=== PATIENT | male | born 1955 | race Hispanic/Latino ===

== ENCOUNTER 2017-10-28 16:01 | Observation (INO) | payer MEDICARE, OTHER ==
[~2017-10-28] VITALS: Ht 175.3 cm; Wt 72.6 kg
--- OUTSIDE RECORDS SUMMARY | 2017-10-28 16:04 | XMS REPORT | Clinical Summary ---
Author Author BARBARA [facility] Organization [facility] Address Unknown Phone Unavailable Care Team Providers Care Reinforcer Name Role Phone PCP Unavailable Allergies Active Allergy Reactions Severity Noted Date Comments Lisinopril Other (See Comments) High 09/05/2015 cough Metformin Other (See Comments) High 11/04/2013 Pt not sure of reaction Reishi Mushroom Other (See Comments) High 09/05/2015 Skin sensitivity Sulfonylureas Other (See Comments) High 11/04/2013 Pt not sure of reaction Current Medications Prescription Sig. Disp. Refills Start End Date Status Date atorvastatin (LIPITOR) 20 Take 1 tablet (20 mg 90 tablet 1 11/10/19 Active MG tablet total) by mouth nightly. 14 lancets (LANCETS,ULTRA Check BS twice daily. 100 each 1 01/25/20 Active THIN) MiscIndications: 16 Type 2 diabetes mellitus without complication (HCC) cloNIDine HCl (CATAPRES) TAke i tab po BID prn for 90 tablet 0 Active 0.1 MG tablet SBP > 160 or DBP > 100. 16 calcium acetate 667 mg Take by mouth 3 (three) Active (169 mg calcium)/5 mL times daily with meals. Soln blood sugar diagnostic 100 strips by 100 strip 1 06/11/20 Active StrpIndications: Type 2 Miscellaneous route every 16 diabetes mellitus without morning Pt uses complication (HCC) Accu-check test strips. amiodarone (PACERONE) 100 Further refills from 30 tablet 0 02/05/20 Active MG tabletIndications: cardiology Dr Street. 17 Paroxysmal atrial fibrillation (HCC), Cough traZODone (DESYREL) 50 MG Take 1 tablet (50 mg 30 tablet 1 03/01/20 Active tabletIndications: total) by mouth every 17 Primary insomnia night as needed for Sleep. losartan (COZAAR) 25 MG Take 1 tablet (25 mg 30 tablet 3 06/26/20 Active tabletIndications: total) by mouth daily 17 Essential hypertension 12.5 mg on TTHS . benzonatate (TESSALON) Take 1 capsule (100 mg 30 capsule 2 06/26/20 Active 100 MG total) by mouth 3 (three) 17 capsuleIndications: Cough times daily as needed for COUGH. levothyroxine (SYNTHROID, 12.5 mcg qd. 15 tablet 3 06/26/20 Active LEVOTHROID) 25 MCG 17 tabletIndications: Hypothyroidism, unspecified type azelastine-fluticasone 1 spray by Nasal route 2 23 g 0 09/08/20 Active (DYMISTA) 137-50 (two) times daily. 17 mcg/spray SpryIndications: Nasal congestion metoprolol (TOPROL-XL) 25 Take 12.5 mg by mouth Active MG 24 hr tablet daily. omeprazole (PRILOSEC) 40 Take 40 mg by mouth Active MG capsule daily. warfarin (COUMADIN) 3 MG Take 1 tablet (3 mg 7 tablet 0 09/13/20 Active tablet total) by mouth daily 17 Take 2mg on on Thursday and , and 4mg all other days. furosemide (LASIX) 40 MG Take 1 tablet (40 mg 60 tablet 2 09/30/19 Active tabletIndications: total) by mouth 2 (two) 18 Essential hypertension times daily. ipratropium-albuterol Take 3 mLs by Active (DUO-NEB) 0.5 mg-3 mg(2.5 nebulization every 4 mg base)/3 mL nebulizer (four) hours as needed solutionIndications: for Wheezing. Wheezing mometasone (ASMANEX Inhale 220 mcg by mouth Active TWISTHALER) 220 mcg (120 via inhaler as needed. doses) AePBIndications: Wheezing predniSONE (DELTASONE) 10 Take 40 mg daily for 3 30 tablet 0 10/16/19 Active MG tablet days, then 30 mg daily 18 for 3 days, then 20 mg daily for 3 days then 10 mg daily for 3 days then stop.. chlorpheniramine-hydrocod Take 5 mLs (8 mg total) 1 Bottle 0 10/16/19 Active one (TUSSIONEX ER) 12 hr by mouth 2 (two) times 18 ER suspension 8 mg-10 daily. Max Daily Amount: mg/5 mL 16 mg traZODone (DESYREL) 50 MG Take 1 tablet (50 mg 30 tablet 5 04/02/20 01/02/20 Discontin tabletIndications: total) by mouth every 15 17 ued Insomnia night as needed for Sleep. [facility] RX 1-60-300 TAKE ONE TABLET BY MOUTH 30 tablet 3 10/22/19 09/13/20 Discontin mg-mg-mcg Tab ONCE DAILY 16 17 ued metoprolol (LOPRESSOR) 25 Take 0.5 tablets (12.5 mg 90 tablet 1 02/05/20 Discontin MG tabletIndications: total) by mouth daily. 16 17 ued Essential hypertension furosemide (LASIX) 40 MG Take 1 tablet (40 mg 30 tablet 5 01/25/20 02/05/20 Discontin tabletIndications: total) by mouth daily. 16 17 ued Coronary artery disease involving [place] coronary artery of [place] heart without angina pectoris amiodarone (PACERONE) 100 Take 100 mg by mouth 02/05/20 Discontin MG tablet daily. 17 ued losartan (COZAAR) 25 MG Take 1 tablet (25 mg 90 tablet 3 06/11/20 Discontin tabletIndications: total) by mouth daily. 16 17 ued Essential hypertension, hypertension with unspecified goal omeprazole (PRILOSEC) 40 Take 1 capsule (40 mg 30 capsule 5 08/20/20 11/22/19 Discontin MG capsule total) by mouth daily. 16 17 ued warfarin (COUMADIN) 2 MG Take 2mg on on Thursday 180 tablet 10 09/13/20 Discontin tablet and , and 4mg all 17 17 ued other days. losartan (COZAAR) 25 MG Take 25 mg by mouth daily 06/11/20 06/26/20 Discontin tablet 12.5 mg on TTHS . 16 17 ued omeprazole (PRILOSEC) 40 Take 40 mg by mouth as 08/20/20 02/05/20 Discontin MG capsule needed. 16 17 ued traZODone (DESYREL) 50 MG TAKE 1 TABLET (50MG 30 tablet 0 01/03/20 02/28/20 Discontin tablet TOTAL) BY MOUTH EVERY 17 17 ued NIGHT NEEDED FOR SLEEP benzonatate (TESSALON) Take 100 mg by mouth 3 02/05/20 Discontin 100 MG capsule (three) times daily as 17 ued needed for Cough. furosemide (LASIX) 40 MG Take 1 tablet (40 mg 60 tablet 1 02/05/20 06/26/20 Discontin tabletIndications: total) by mouth 2 (two) 17 17 ued Coronary artery disease times daily. involving [place] coronary artery of [place] heart without angina pectoris metoprolol (LOPRESSOR) 25 Take 0.5 tablets (12.5 mg 90 tablet 1 09/11/20 Discontin MG tabletIndications: total) by mouth daily. 17 17 ued Essential hypertension omeprazole (PRILOSEC) 40 Take 1 capsule (40 mg 30 capsule 1 02/05/20 06/26/20 Discontin MG capsuleIndications: total) by mouth daily as 17 17 ued Gastroesophageal reflux needed (heartburn). disease without esophagitis benzonatate (TESSALON) Take 1 capsule (100 mg 30 capsule 0 02/05/20 02/28/20 Discontin 100 MG total) by mouth 3 (three) 17 17 ued capsuleIndications: times daily as needed for Essential hypertension Cough. levothyroxine Take 0.5 tablets (12.5 15 tablet 1 02/07/20 04/07/20 Discontin (LEVOTHROID) 25 MCG mcg total) by mouth Every 17 17 ued tabletIndications: morning on an empty Hypothyroidism, stomach for 30 days 12.5 unspecified type, mcg qd. Elevated TSH benzonatate (TESSALON) Take 1 capsule (100 mg 30 capsule 0 02/28/20 03/16/20 Discontin 100 MG total) by mouth 3 (three) 17 17 ued capsuleIndications: times daily as needed for Essential hypertension Cough. benzonatate (TESSALON) TAKE ONE CAPSULE BY MOUTH 30 capsule 0 04/07/20 Discontin 100 MG THREE TIMES DAILY 17 17 ued capsuleIndications: NEEDED FOR COUGH Essential hypertension benzonatate (TESSALON) Take 1 capsule (100 mg 30 capsule 0 04/07/20 06/26/20 Discontin 100 MG total) by mouth 3 (three) 17 17 ued capsuleIndications: times daily as needed for Essential hypertension COUGH. levothyroxine Take 0.5 tablets (12.5 15 tablet 1 04/07/20 05/07/20 (LEVOTHROID) 25 MCG mcg total) by mouth Every 17 17 tabletIndications: morning on an empty Hypothyroidism, stomach for 30 days 12.5 unspecified type, mcg qd. Elevated TSH omeprazole (PRILOSEC) 40 Take 1 capsule (40 mg 30 capsule 1 06/26/20 09/11/20 Discontin MG capsuleIndications: total) by mouth daily. 17 17 ued Gastroesophageal reflux disease without esophagitis furosemide (LASIX) 40 MG Take 1 tablet (40 mg 60 tablet 2 06/26/20 09/29/19 Discontin tabletIndications: total) by mouth 2 (two) 17 18 ued Essential hypertension times daily. doxycycline (VIBRA-TABS) Take 1 tablet (100 mg 14 tablet 0 07/09/20 09/11/20 Discontin 100 MG tablet total) by mouth 2 (two) 17 17 ued times daily. mupirocin (BACTROBAN) 2 % Apply topically 4 (four) 30 g 0 07/10/20 07/15/20 creamIndications: Open times daily for 5 days. 17 17 wound of left lower extremity, subsequent encounter oseltamivir (TAMIFLU) 30 Take 1 capsule (30 mg 1 capsule 0 09/14/20 09/15/20 MG capsule total) by mouth daily for 17 17 1 day. methylPREDNISolone follow package 21 tablet 0 09/13/20 09/20/20 (MEDROL DOSEPACK) 4 mg directions. 17 17 tablet codeine-guaifenesin Take 5 mLs by mouth every 40 mL 0 10/08/1910/16 Discontin (GUAIFENESIN AC) 10-100 night as needed for Cough 18 18 ued mg/5 mL for up to 7 days. Max liquidIndications: Daily Amount: 5 mLs Persistent cough Hospital, Clinic, or Ordered Dose Route Frequency Start End Date Status Other Facility Date Administered Medication albuterol (PROVENTIL) 2.5 MG nebu Once 09/10/20 Active nebulizer solution 2.5 17 mgIndications: Wheezing Active Problems Problem Noted Date Sepsis ([facility]) 10/12/2017 Influenza A 09/10/2017 Acquired hypothyroidism 06/26/2017 Overview: TSH persistently elevated, started on levo 12.5 mcg qd in 03/07. 06/26--ran out of levo a month ago, rx given today.lab order written for tsh and free t4, he will do at a lab [facility] close to his home in 6 weeks. Insomnia due to medical condition 02/08/2017 Overview: Associated with mild depression, trazodone helps. Chronic combined systolic and diastolic congestive heart failure ([facility]) 06/11 Overview: Last EF 40-44% 2014 Diastolic dysfunction as well Paroxysmal atrial fibrillation ([facility]) 12/24/2015 Overview: Dr Silva on coumadin managed by pcp ESRD (end stage renal disease) on dialysis ([facility]) 04/02/2015 Overview: [place], Fausto Jauregui [facility] Hypertension 11/25/2013 Coronary artery disease. I A B P. Delirium. s/p CABG x3 11/21/20142012 Overview: s/p PTCA by Dr Street PAD (peripheral artery disease) ([facility]) Anemia Overview: Secondary to CKD Bilateral carotid artery disease ([facility]) Overview: Dopplers ordered by Dr Silva Diabetes mellitus ([facility]) Overview: accucheks q 7-10 days, around 100-120. Last a1c 6.9. Was on insulin prn in the past L ast Assessment & Plan: Managed by Dr. Quintin Barrera. On Tradjenta monotherapy. Retinopathy Overview: Seeing Dr. Pizarro and being followed for retinopathy for the eye procedure. Lacunar stroke Overview: No deficits on exam except 2/2 CIDP CIDP (chronic inflammatory demyelinating polyneuropathy) Overview: Dr. Lozano, manifested as pain and weakness in the hands Can't walk long distances due to spine pain, uses a cane for balance and pain Proteinuria Overview: UPC ~3-4, UPIFE/SPEP, serologies negative 2013 Resolved Problems Problem Noted Date Resolved Date On warfarin therapy 10/08/2016 02/04/2017 Overview: A-fib, [facility], Home INR, Also on HD Encounters Date Type Specialty Care Team Description 10/28/2017 Telephone Internal Medicine Crsitian Ackerman MD REPORT INR and BS (REPORT INR and BS 10/28/2017) 10/26/2017 Telephone Internal Medicine Cristian Ackerman MD Results 10/23/2017 Telephone Internal Medicine Cristian Ackerman MD BS READAING 10/22/2017 Orders Only Internal Cristian Blue MD 10/22/2017 Telephone Internal Medicine Cristian Ackerman MD Anticoagulation 10/19/2017 Telephone Internal Medicine Cristian Ackerman MD INR /Rx ( INR result and Rx questions and Fall) 10/12/[address] [facility] Internal Medicine Aries Rod MD Wheezing - Encounter Chon Mooney, 10/16/2017 Gilda Quesada MD 10/12/2017 Office Visit Internal Medicine Cristian Ackerman MD Chronic anticoagulation (Primary Dx);Persistent cough;Essential hypertension;Wheezing;Typ e 2 diabetes mellitus without complication, without long-term current use of insulin (HCC);ESRD (end stage renal disease) on dialysis;Paroxysmal atrial fibrillation (HCC) 10/12/2017 Telephone Internal Medicine Cristian Ackerman MD Coagulation Disorder (INR out of Range 10/08/2017) 10/12/2017 Telephone Internal Medicine Cristian Ackerman MD Advice Only ; Appointment 10/08/2017 Telephone Internal Medicine Cristian Ackerman MD Medication (Change med , ) 10/08/2017 Telephone Internal Medicine Cristian Ackerman MD INR 10/08/2017 Orders Only Internal Medicine Cristian Ackerman MD Persistent cough (Primary Dx) 10/05/2017 Orders Only Internal Medicine Cristian Ackerman MD 09/30/2017 Telephone Internal Medicine Cristian Ackerman MD INR 09/29/2017 Refill Internal Medicine Cristian Ackerman MD Essential hypertension 09/28/2017 Clinical Internal Medicine Cristian Ackerman MD Support 09/25/2017 Orders Only Internal Medicine Karis Travis MD 09/25/2017 Refill Internal Medicine Cristian Ackerman MD Essential hypertension 09/23/2017 Orders Only Internal Medicine Karis Travis MD 09/23/2017 Telephone Internal Medicine Karis Travis MD INR 09/22/2017 Emergency Emergency Medicine Tyrell Myrick MD Closed head injury, initial encounter (Primary Dx);Fall, initial encounter;Weakness;Decrea sed oral intake;Anticoagulated on Coumadin;History of influenza 09/22/2017 Telephone Internal Medicine Cristian Ackerman MD Duplicate msg see 09/22/2017 09/22/2017 Telephone Internal Medicine Cristian Ackerman MD Fall; FOLLOW UP FROM FALL; INR REGIMEN 09/18/2017 Orders Only Internal Medicine Cristian Ackerman MD 09/18/2017 Telephone Internal Medicine Cristian Ackerman MD Results ( INR RESULTS ) 09/16/2017 Orders Only Internal Medicine Cristian Ackerman MD 09/15/2017 Telephone Internal Medicine Cristian Ackerman MD INR 09/10/2017 [facility] Internal Medicine [place] Influenza A (Primary - Encounter Ryann Guan MD Dx);Hypoxia;ESRD (end 09/13/2017 Katharine Morris) Richard, stage renal disease) ([facility]);Wheezing 09/10/2017 Office Visit Internal Medicine Cristian Ackerman MD Influenza A (Primary Dx);Wheezing;Chronic anticoagulation;Type 2 diabetes mellitus without complication, without long-term current use of insulin ([facility]);Essential hypertension;ESRD (end stage renal disease) on dialysis;Cough 09/10/2017 Orders Only General Internal Medicine 09/10/2017 Telephone Internal Medicine Cristian Ackerman MD appt 09/09/2017 Telephone Internal Medicine Cristian Ackerman MD Coagulation Disorder 09/02/2017 Orders Only Internal Medicine Cristian Ackerman MD 09/02/2017 Telephone Internal Medicine Cristian Ackerman MD Results ( INR Results) 08/26/2017 Orders Only Internal Medicine Cristian Ackerman MD 07/29/2017 Telephone Internal Medicine Cristian Ackerman MD PT/INR 07/21/2017 Telephone Internal Medicine Cristian Ackerman MD PT/INR 07/13/2017 Telephone Internal Medicine Cristian Ackerman MD Lab results 07/10/2017 Office Visit Internal Medicine Cristian Ackerman MD Open wound of left lower extremity, subsequent encounter (Primary Dx);Chronic anticoagulation 06/26/2017 Office Visit Internal Medicine Cristian Ackerman MD Anemia, unspecified type (Primary Dx);Gastroesophageal reflux disease without esophagitis;Coronary artery disease involving [place] coronary artery of [place] heart without angina pectoris;Essential hypertension;Type 2 diabetes mellitus without complication, without long-term current use of insulin (HCC);ESRD (end stage renal disease) on dialysis;Chronic combined systolic and diastolic congestive heart failure (HCC);Mixed hyperlipidemia 06/26/2017 Telephone Internal Medicine Cristian Ackerman MD Clarify directions of Rx 06/25/2017 Telephone Internal Medicine Cristian Ackerman MD Results ( Placed call Ms. Rosa Blackmon picked the phone states she has the power of Atty. I advised the pt should continue with the same dose medication and repeat lab in 2 weeks) 06/24/2017 Telephone Internal Medicine Cristian Ackerman MD Concered about patient 06/04/2017 Telephone Internal Cristian Blue MD 06/05/2017 Appt (Cancel 06/05/2017 ) 05/28/2017 Telephone Internal Medicine Cristian Ackerman MD INR 05/13/2017 Refill Internal Medicine Cristian Ackerman MD Essential hypertension 05/11/2017 Refill Internal Medicine Cristian Ackerman MD Essential hypertension 05/06/2017 Refill Internal Medicine Cristian Ackerman MD Essential hypertension 05/04/2017 Orders Only Internal Cristian Blue MD 04/07/2017 Refill Internal Medicine Cristian Ackerman MD Essential hypertension 03/31/2017 [place] Encounter MD 03/31/2017 Telephone Internal Medicine Cristian Ackerman MD Results 03/16/2017 Refill Internal Medicine Cristian Ackerman MD Essential hypertension 03/10/2017 Telephone Internal Medicine Cristian Ackerman MD Medication Problem 03/02/2017 Telephone Internal Medicine Cristian Ackerman MD Medication Reaction 03/02/2017 Refill Internal Cristian Blue MD 02/28/2017 Refill Internal Medicine Benitez Dewitt MD 02/27/2017 Orders Only Internal Medicine Cristian Ackerman MD Essential hypertension 02/27/2017 Refill Internal Medicine Cristian Ackerman MD Essential hypertension 02/27/2017 Refill Internal Medicine Benitez Dewitt MD Primary insomnia (Primary Dx) 02/09/2017 Telephone Internal Medicine Cristian Ackerman MD Results 02/05/2017 Telephone Internal Medicine Cristian Ackerman MD Results 02/04/2017 Hospital Cristian Ackerman MD Cough Encounter 02/04/2017 Office Visit Internal Medicine Cristian Ackerman MD Bilateral carotid artery disease (HCC) (Primary Dx);Coronary artery disease involving [place] coronary artery of [place] heart without angina pectoris;Paroxysmal atrial fibrillation (HCC);Type 2 diabetes mellitus without complication, without long-term current use of insulin (HCC);Chronic anticoagulation;Elevated TSH;Mixed hyperlipidemia;Cough;Esse ntial hypertension;Gastroesopha geal reflux disease without esophagitis 01/29/2017 Refill Internal Medicine Quintin Barrera MD 01/13/2017 Orders Only Internal Medicine Benitez Dewitt MD 01/03/2017 Telephone Internal Medicine Benitez Dewitt MD Appointment (Needs appt) 01/01/2017 Refill Internal Medicine Quintin Barrera MD 01/01/2017 Orders Only Internal Medicine Racheal Salmeron MD 12/10/2016 Orders Only Internal Medicine Racheal Salmeron MD 11/21/2016 Office Visit Cardiology Pamela Sy, ESRD (end stage renal MD disease) on dialysis (HCC) (Primary Dx) 11/19/2016 Telephone Internal Medicine Racheal Salmeron MD Coagulation Disorder 11/17/2016 Telephone Internal Medicine Racheal Salmeron MD Medication Refill 11/13/2016 Orders Only Internal Medicine Racheal Salmeron MD after 10/27/2016 Immunizations Name Dates Previously Given Next Due Influenza High Dose 06/11/2015 Preservative Free [id number] Influenza, High Dose 08/25/2014 Seasonal Pneumococcal 08/25/2014 Polysaccharide (Pneumovax) Tdap 06/26/2017 Family History Medical History Relation Name Comments Diabetes Father Heart disease Father Heart failure Father age 46 of heart disease High blood pressure Father Hyperlipidemia Father Diabetes Mother Heart disease Mother High blood pressure Mother Hyperlipidemia Mother Stroke Mother Relation Name Status Comments Father Mother Social History Tobacco Use Types Packs/Day Years Used Date Never Smoker Cigars Quit: 05/30/1995 Smokeless Tobacco: Never Used Alcohol Use Drinks/Week oz/Week Comments Yes Sex Assigned at Date Recorded Not on file Last Filed Vital Signs Vital Sign Reading Time Taken Blood Pressure 141/65 10/16/2017 3:00 PM [employer]IST[employer] Pulse 89 10/16/2017 3:19 PM [employer]EARCH [employer]UDY ASSISTANT Temperature 35.7 C (96.3 F) 10/16/2017 3:00 PM [employer]EARCH STUDY ASSISTANT Respiratory Rate 18 10/16/2017 3:19 PM [employer]EARCH STUDY ASSISTANT Oxygen Saturation 96% 10/16/2017 3:19 PM RESEARCH STUDY ASSISTANT Inhaled Oxygen - - Concentration Weight 72.3 kg (159 lb 6.4 oz) 10/16/2017 5:00 AM RESEARCH STUDY ASSISTANT Height 175.3 cm (5' 9") 10/12/2017 1:05 PM [employer]EARCH [employer]UDY ASSISTANT Body Mass Index 23.54 10/16/2017 5:00 AM RESEARCH STUDY ASSISTANT Plan of Treatment Health Maintenance Due Date Last Done Comments INFLUENZA VACCINE 06/21/2017 06/11/2015 Procedures Procedure Name Priority Date/Time Associated Diagnosis Comments CRITICAL CARE Routine 09/13/2017 Results for this 9:44 AM RESEARCH STUDY ASSISTANT procedure are in the results section. after 10/27/2016 Results * RHYTHM STRIP - SCAN (10/27/2017 9:12 AM) Only the most recent of 5 results within the time period is included. * Prothrombin time/INR (10/22/2017) Only the most recent of 24 results within the time period is included. Specimen Performing Laboratory Blood OTHER (EXTERNAL) * POC-Glucose meter (10/16/2017 11:04 AM) Only the most recent of 20 results within the time period is included. Component Value Ref Range POC-Glucose Meter 328 (H)Comment: TESTED AT [address] 70 - 110 mg /dL [facility] [id number] Specimen Performing Laboratory Blood [facility] [address] [address] * CBC with platelet count + automated diff (10/16/2017 6:46 AM) Only the most recent of 10 results within the time period is included. Component Value Ref Range WBC 14.8 (H) 3.5 - 10.5 K/ L RBC 3.43 (L) 4.63 - 6.08 M/ L Hemoglobin 10.2 (L) 13.7 - 17.5 GM/DL Hematocrit 32.8 (L) 40.1 - 51.0 % MCV 95.6 (H) 79.0 - 92.2 fL MCH 29.7 25.7 - 32.2 pg MCHC 31.1 (L) 32.3 - 36.5 GM/DL RDW 15.7 (H) 11.6 - 14.4 % Platelets 260 150 - 450 K/CU MM MPV 9.6 9.4 - 12.4 fL nRBC 0 0 - 0 /100 WBC % Neutros 93 % % Lymphs 4 % % Monos 3 % % Eos 0 % % Baso 0 % # Neutros 13.73 (H) 1.78 - 5.38 K/ L # Lymphs 0.54 (L) 1.32 - 3.57 K/ L # Monos 0.43 0.30 - 0.82 K/ L # Eos 0.00 (L) 0.04 - 0.54 K/ L # Baso 0.00 (L) 0.01 - 0.08 K/ L Immature 1 0 - 1 % Granulocytes-Relative Specimen [place] [address] * CBC with platelet count + automated diff (10/16/2017 6:46 AM) Only the most recent of 11 results within the time period is included. Specimen Performing Laboratory Blood Narrative The following orders were created for panel order CBC with platelet count + automated diff. Procedure Abnormality Status --------- - ------ CBC with platelet count ...[[id number]]AbnormalFinal result Please view results for these tests on the individual orders. * Magnesium (10/16/2017 6:46 AM) Only the most recent of 8 results within the time period is included. Component Value Ref Range Magnesium 1.9 1.6 - 2.6 mg/dL Specimen Performing Laboratory Blood [address] [address] * Basic Metabolic Panel (10/16/2017 6:46 AM) Only the most recent of 10 results within the time period is included. Component Value Ref Range Sodium 135 (L) 136 - 145 meq/L Potassium 4.0 3.5 - 5.1 meq/L Chloride 97 (L) 98 - 107 meq/L CO2 29 22 - 29 meq/L BUN 33 (H) 7 - 21 mg/dL Creatinine 4.29 (H) 0.57 - 1.25 mg/dL Glucose 233 (H) 70 - 105 mg/dL Calcium 8.4 8.4 - 10.2 mg/dL EGFR 14Comment: ESTIMATED GFR IS NOT ACCURATE mL/min/1.73 sq m CREATININE CLEARANCE IN PREDICTING GLOMERULAR FILTRATION RATE. ESTIMATED GFR IS NOT APPLICABLE FOR DIALYSIS PATIENTS. Specimen Performing Laboratory Blood [facility] [address] [address] * CT chest without IV contrast (10/15/2017 5:42 PM) Specimen Performing Laboratory [facility] Narrative FINAL REPORT CT scan of the chest. MEDICAL HISTORY: Persistent cough. COMPARISON STUDY: CT scan dated February 01, 2016. Chest x-ray dated October 12, 2017 TECHNIQUE: Contiguous helical slices were acquired through the thorax without the administration of contrast. This exam was performed according to our department dose optimization program which includes automated exposure control, adjustment of the mA and/or kV according to the patient's size and/or use of iterative reconstruction technique. FINDINGS: The mediastinum demonstrates epicardial pacer wires. Atherosclerosis is seen. There are no suspicious masses or adenopathy. A left brachiocephalic vein stent is present. There is a mild to moderate right-sided pleural effusion and trace left-sided pleural fluid. The visualized portions of the upper abdomen are unremarkable. The tracheobronchial tree is clear with no endobronchial lesions. The pulmonary parenchyma demonstrates a 9 mm nodule in the right lung apex on image six, new from previous. There are two semisolid nodules in the right upper lobe on image 14 measuring 6 cm and 3 mm. Multiple other scattered semisolid nodules are seen which are new. Areas of atelectasis or consolidation are seen. There is some patchy airspace opacity and groundglass opacity in both lung bases. Within the right lung base adjacent to the effusion is a 4.7 x 2.7 cm opacity which is similar to previous and may represent rounded atelectasis. Similarly, chronic opacity is seen in the left lung base. Scattered reticulonodular markings are noted. There is a 1.1 cm nodule in the right lower lobe on image 29, not clearly present on the prior study. Bone windows demonstrate poststernotomy changes and degenerative changes. IMPRESSION: 1. Mild to moderate right-sided and trace left-sided pleural effusion with likely adjacent rounded atelectasis. The size of the effusions is smaller than on previous. 2. Increase in groundglass, patchy airspace and reticulonodular markings as compared to previous. Multiple new nodules are also seen. This could either be followed up with short-term three-month CT scan or CT/PET scan to exclude suspicious nodules. 3. Potential etiologies include volume overload or atypical infection. Signed: Camilo Laguerre MD Report Verified Date/Time:10/15/2017 18:53:51 Reading Location: [address] Consult Reading Room Procedure Note Interface, External Ris In - 10/15/2017 6:55 PM RESEARCH STUDY ASSISTANT FINAL REPORT CT scan of the chest. MEDICAL HISTORY: Persistent cough. COMPARISON STUDY: CT scan dated February 01, 2016. Chest x-ray dated October 12, 2017 TECHNIQUE: Contiguous helical slices were acquired through the thorax without the administration of contrast. This exam was performed according to our department dose optimization program which includes automated exposure control, adjustment of the mA and/or kV according to the patient's size and/or use of iterative reconstruction technique. FINDINGS: The mediastinum demonstrates epicardial pacer wires. Atherosclerosis is seen. There are no suspicious masses or adenopathy. A left brachiocephalic vein stent is present. There is a mild to moderate right-sided pleural effusion and trace left-sided pleural fluid. The visualized portions of the upper abdomen are unremarkable. The tracheobronchial tree is clear with no endobronchial lesions. The pulmonary parenchyma demonstrates a 9 mm nodule in the right lung apex on image six, new from previous. There are two semisolid nodules in the right upper lobe on image 14 measuring 6 cm and 3 mm. Multiple other scattered semisolid nodules are seen which are new. Areas of atelectasis or consolidation are seen. There is some patchy airspace opacity and groundglass opacity in both lung bases. Within the right lung base adjacent to the effusion is a 4.7 x 2.7 cm opacity which is similar to previous and may represent rounded atelectasis. Similarly, chronic opacity is seen in the left lung base. Scattered reticulonodular markings are noted. There is a 1.1 cm nodule in the right lower lobe on image 29, not clearly present on the prior study. Bone windows demonstrate poststernotomy changes and degenerative changes. IMPRESSION: 1. Mild to moderate right-sided and trace left-sided pleural effusion with likely adjacent rounded atelectasis. The size of the effusions is smaller than on previous. 2. Increase in groundglass, patchy airspace and reticulonodular markings as compared to previous. Multiple new nodules are also seen. This could either be followed up with short-term three-month CT scan or CT/PET scan to exclude suspicious nodules. 3. Potential etiologies include volume overload or atypical infection. Signed: Camilo Laguerre MD Report Verified Date/Time: 10/15/2017 18:53:51 Reading Location: [address] Consult Reading Room * Hemodialysis (10/15/2017 2:13 PM) Narrative Светлана Ruby RN 10/15/20172:13 PM Hemodialysis tolerated well. Vital signs stable. HD duration 4 hours UF 3.6 L Lab Results Component Value Date WBC 16.9 (H) 10/15/2017 HGB 9.5 (L) 10/15/2017 HCT 30.0 (L) 10/15/2017 MCV 95.5 (H) 10/15/2017 PLT 254 10/15/2017 Lab Results Component Value Date GLUCOSE 187 (H) 10/15/2017 CALCIUM 7.9 (L) 10/15/2017 NA 132 (L) 10/15/2017 K 4.4 10/15/2017 CO2 26 10/15/2017 CL 96 (L) 10/15/2017 BUN 30 (H) 10/15/2017 CREATININE 5.30 (H) 10/15/2017 No components found for: HEPSAG Vitals: 10/15/17 1315 BP: 93/56 Pulse: 70 Resp: 24 Temp: 96.5 F (35.8 C) SpO2: * Hepatitis B surface antigen (10/13/2017 9:06 PM) Only the most recent of 2 results within the time period is included. Component Value Ref Range hepatitis B Surface Ag Nonreactive Nonreactive Specimen Performing Laboratory Blood [address] [address] * Potassium (10/13/2017 4:44 PM) Component Value Ref Range Potassium 3.3 (L) 3.5 - 5.1 meq/L Specimen Performing Laboratory Blood - Arm, [place] [address] * Manual Differential (10/13/2017 5:43 AM) Component Value Ref Range % Neutros (manual) 96 % % Lymphs (manual) 2 % % Monos (manual) 2 % % Eos (manual) 0 % % Baso (manual) 0 % # Neutros (manual) 8.54 (H) 1.80 - 8.00 K/ L # Lymphs (manual) 0.18 (L) 1.48 - 4.50 K/ L # Monos (manual) 0.18 0.00 - 1.30 K/ L # Eos (manual) 0.00 0.00 - 0.50 K/ L # Baso (manual) 0.00 0.00 - 0.20 K/ L Total Counted 100 WBC Morphology Normal Platelet Morphology Normal RBC Morphology Normal Specimen Performing Laboratory Blood - Arm, [place] [address] * XR chest 1 view portable / bedside (10/12/2017 9:42 PM) Specimen Performing Laboratory GE RIS Narrative FINAL REPORT EXAMINATION:AP PORTABLE CHEST RADIOGRAPH CLINICAL INDICATION: Pneumonia IMPRESSION: Compared with 09/10/2017. A midline sternotomy is again noted. The enlarged heart, basilar lung opacities and bilateral pleural effusions are grossly stable. A vascular stent is again noted along the expected course of the left innominate vein. No evidence of an acute osseous abnormality or pneumothorax. In summary, no significant interval change. Signed: Jaky Thompson MD Report Verified Date/Time:10/12/2017 22:36:28 Reading Location: [address] Reading Room Procedure Note Interface, External Ris In - 10/12/2017 10:38 PM RESEARCH STUDY ASSISTANT FINAL REPORT EXAMINATION: AP PORTABLE CHEST RADIOGRAPH CLINICAL INDICATION: Pneumonia IMPRESSION: Compared with 09/10/2017. A midline sternotomy is again noted. The enlarged heart, basilar lung opacities and bilateral pleural effusions are grossly stable. A vascular stent is again noted along the expected course of the left innominate vein. No evidence of an acute osseous abnormality or pneumothorax. In summary, no significant interval change. Signed: Jaky Thompson MD Report Verified Date/Time: 10/12/2017 22:36:28 Reading Location: [address] Reading Room * Respiratory Panel [facility] (10/12/2017 9:24 PM) Component Value Ref Range Human Metapneumovirus Not detected Not detected, Inconclusive Rhinovirus Not detected Not detected, Inconclusive Influenza A Not detected Not detected, Inconclusive Influenza A subtype H1 Not detected Not detected, Inconclusive Influenza A Subtype H3 Not detected Not detected, Inconclusive Influenza A Subtype Not detected Not detected, H1-2009 Inconclusive Influenza B Not detected Not detected, Inconclusive Respiratory Syncytial Not detected Not detected, Virus Inconclusive Parainfluenza Virus 1 Not detected Not detected, Inconclusive Parainfluenza Virus 2 Not detected Not detected, Inconclusive Parainfluenza virus 3 Not detected Not detected, Inconclusive Parainfluenza Virus 4 Not detected Not detected, Inconclusive Adenovirus Not detected Not detected, Inconclusive Coronavirus 229E Not detected Not detected, Inconclusive Coronavirus HKU1 Not detected Not detected, Inconclusive Coronavirus NL63 Not detected Not detected, Inconclusive Coronavirus OC43 Not detected Not detected, Inconclusive Bordetella Pertussis Not detected Not detected, Inconclusive Chlamydophila Pneumoniae Not detected Not detected, Inconclusive Mycoplasma Pneumoniae Not detected Not detected, Inconclusive Specimen Performing Laboratory Nasopharyngeal - [facility] Nasopharyngeal Swab [address] [place] [address] * Lactic acid, venous, whole blood (10/12/2017 9:24 PM) Component Value Ref Range Lactate, Venous 1.0 0.5 - 2.2 mmol/L Specimen Performing Laboratory Blood - Arm, Right [address] [address] Narrative Effective 01/23/2016: Units/Reference Range Change New: 0.5-2.2 mmol/LPrevious: 5-20 mg/dL * B-type Natriuretic Factor (BNP) (10/12/2017 9:24 PM) Only the most recent of 2 results within the time period is included. Component Value Ref Range BNP 1342 (H) 0 - 100 pg/mL Specimen Performing Laboratory Blood - Arm, Right [facility] [address] [place] [address] * POCT Protime-INR Fingerstick (10/12/2017 3:47 PM) Only the most recent of 2 results within the time period is included. Component Value Ref Range Protime 21.0 (A)Comment: PERFORMED BY MEKA AND ENTERED BY 10.0 - 13.8 seconds GROVER INR 1.7 (A) 0.9 - 1.1 Specimen Performing Laboratory Blood * CT brain without IV contrast (09/22/2017 3:14 PM) Specimen Performing Laboratory GE RIS Narrative FINAL REPORT CT Head without contrast CLINICAL HISTORY: FALL Fall TECHNIQUE: Contiguous axial images through the head without contrast. This exam was performed according to the departmental dose optimization program which includes automated exposure control, adjustment of the mA and/or kV according to the patient size, and/or use of an iterative reconstruction technique. COMPARISON: 01/25/2016 FINDINGS: There is no evidence of skull fracture or intracranial hemorrhage. 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 There is periventricular and subcortical white matter hypodensity which is nonspecific but compatible with chronic microvascular ischemic change. There are atherosclerotic calcifications of the intracranial circulation. There is generalized parenchymal volume loss without hydrocephalus, midline shift, or apparent mass effect. The paranasal sinuses are well-aerated. IMPRESSION: No evidence of skull fracture or intracranial hemorrhage. Signed: Mora Marsh MD Report Verified Date/Time:09/22/2017 15:14:56 Reading Location: [facility] Radiology Reading Room Procedure Note Interface, External Ris In - 09/22/2017 3:17 PM RESEARCH STUDY ASSISTANT FINAL REPORT CT Head without contrast CLINICAL HISTORY: FALL Fall TECHNIQUE: Contiguous axial images through the head without contrast. This exam was performed according to the departmental dose optimization program which includes automated exposure control, adjustment of the mA and/or kV according to the patient size, and/or use of an iterative reconstruction technique. COMPARISON: 01/25/2016 FINDINGS: There is no evidence of skull fracture or intracranial hemorrhage. 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 There is periventricular and subcortical white matter hypodensity which is nonspecific but compatible with chronic microvascular ischemic change. There are atherosclerotic calcifications of the intracranial circulation. There is generalized parenchymal volume loss without hydrocephalus, midline shift, or apparent mass effect. The paranasal sinuses are well-aerated. IMPRESSION: No evidence of skull fracture or intracranial hemorrhage. Signed: Mora Marsh MD Report Verified Date/Time: 09/22/2017 15:14:56 Reading Location: [facility] Radiology Reading Room * PT/aPTT (09/22/2017 2:54 PM) Only the most recent of 2 results within the time period is included. Component Value Ref Range Protime 23.0 (H) 11.7 - 14.7 seconds INR 2.0 <=5.9 PTT 33.8 22.5 - 36.0 seconds Specimen Performing Laboratory Blood - Arm, [place] [address] Narrative RECOMMENDED COUMADIN/WARFARIN INR THERAPY RANGES STANDARD DOSE: 2.0 - 3.0 Includes: PROPHYLAXIS for venous thrombosis, systemic embolization; TREATMENT for venous thrombosis and/or pulmonary embolus. HIGH RISK: Target INR is 2.5-3.5 for patients with mechanical heart valves. * CHG PROTHROMBIN TIME (09/16/2017) Only the most recent of 4 results within the time period is included. * ED ECG Interpretation (09/13/2017 9:44 AM) Narrative Rehan Garcia MD 09/13/20179:44 AM ECG/EKG Interpretation Date/Time: 09/10/2017 3:28 PM Performed by: REHAN GARCIA Authorized by: REHAN GARCIA The ECG was interpreted by ED physician. The ECG is interpreted as sinus rhythm. Rate is normal rate. Heart rate is 76 BPM. Conduction: conduction normal. ST segments normal. T waves normal. [place] is normal. Q-waves are present in lead(s) III and aVF. Clinical Impression: abnormal ECGECG reviewed and does not meet STEMI criteria. Patient tolerance: Patient tolerated the procedure well with no immediate complications * Critical Care (09/13/2017 9:44 AM) Narrative Rehan Garcia MD 09/13/20179:44 AM Critical Care Performed by: REHAN GARCIA Authorized by: REHAN GARCIA Total critical care time: 60 minutes Critical care time was exclusive of separately billable procedures and treating other patients and teaching time. Critical care was necessary to treat or prevent imminent or life-threatening deterioration of the following conditions: sepsis. Critical care was time spent personally by me on the following activities: blood draw for specimens, development of treatment plan with patient or surrogate, discussions with consultants, interpretation of cardiac output measurements, evaluation of patient's response to treatment, examination of patient, obtaining history from patient or surrogate, ordering and performing treatments and interventions, ordering and review of laboratory studies, ordering and review of radiographic studies, pulse oximetry, re-evaluation of patient's condition and review of old charts. * ECHOCARDIOGRAM REPORT - SCAN (09/11/2017 5:13 PM) * 2D Echo W/Doppler(CW/PW/Color) (09/11/2017 2:09 PM) Component Value Ref Range Ejection Fraction Specimen Performing Laboratory [facility] ECHO HEARTLAB [facility] Narrative Transthoracic Echocardiography Report (TTE) Demographics Patient Name Debo BENITEZ of Study 09/11/2017 CECE [id number] Male Visit Number [id number] Unknown [id number] Room Number 918 Number Date of Birth4Referring Physician Yenifer Webster Age61 year(s)Compressor Station Operator Danielle Abrams [facility] Interpreting Gabriel Burrell MD Physician Fellow LUI Mora Procedure Type of Study TTE procedure:2DECHO W DOPPLER(CW/PW/COLOR) (STAT) Indications:Shortness of breath. Clinical History HGB 10.1 HCT 32.1 % CAD, DM, ESRD, HTN, Stroke, PAD, PAF, CHF, Influenza A s/p PCI/stent x 1 (05/31/2013) s/p CABG x 3 (11/21/2014) Contrast Medium: Definity. Amount - 2 ml Height: 69 inches Weight: 81.65 kg (180 lbs) BSA: 1.98 m^2 BMI: 26.58 kg/m^2 HR: 61 bpm BP: 148/65 mmHg Summary 1. Normal LV size and function. LVEF is 55-60%. 2. Diastology: Inconsistent 3. Normal RV size and function 4. Mild MAC 5. Mild TR. Estimated PASP is 25 + clinically estimated RAP. Previous Study In comparison with the prior exam 11/27/14 the following changes are noted: LVEF is improved. PA pressures are increased. Signature Findings Technical Quality: Technically adequate exam. Rhythm/BPRegular sinus rhythm during the exam. Left Ventricle LV endocardium is adequately visualized with IV ultrasound enhancing agent. The left ventricle is chamber size (by vol index) is normal (male - LVED vol - 34- 74ml/m2). No evidence of LV hypertrophy. All of the LV segments contract normally . LVEF by Mcleod's method of disk assessment is normal (55-60%) . Septal motion is abnormal, likely related to prior cardiac surgery . Diastology: Inconsistent. Left AtriumLA size is moderately enlarged (42-48 ml/m2 ) . Right VentricleThe right ventricular chamber size and systolic function are within normal limits. Right Atrium RA size is normal. Aortic Valve Mild AV thickening and calcification. Mitral Valve Mild MAC noted. Tricuspid ValveTV structure is normal. Mild tricuspid regurgitation. Estimated peak systolic pressure is at least 40-45 mmHg. Pulmonic Valve Normal PV structure and function. AortaAortic root size (SInus of Valsalva diameter) is normal . PericardiumNo pericardial effusion is visualized. IVC/SVC/PA/PV/PleuralThe estimated RA pressure by IVC dynamics 11-15mmHg . Chambers/Structures Left Atrium LA Dimension: 4.26 cmLA Area: 25.42 cm^2 LA Volume: 86.36 ml LA Vol. Index: 44 ml/m^2 Left Ventricle LVIDd: 4.96 cm LVIDs: 3.08 cm LV Septum Diastolic: 0.93 cm LV PW Diastolic: 1.16 cmLV FS: 37.9 % LVEDV Mcleod's:106.38 ml LVESV Mcleod's:45.55 mlLVEDVI: 54 ml/m ^2 LVEF Mcleod's: 57.2 %LVESVI: 23 ml /m^2 LVOT Diameter: 2.11 cm Right Ventricle TAPSE: 1.24 cm Doppler/Quantitative Measurements Mitral Valve MV Peak E-Wave: 1.43 m/s MV Peak A-Wave: 0.73 m /s E/A Ratio: 1.96 Peak Gradient: 8.19 mmHg MV Paulino. Peak: Tissue Doppler E' Septal Velocity: 0.07 m/s E/E': 19.42 Aortic Valve Peak Velocity: 1.15 m/sMean Velocity: 0.8 m /s Peak Gradient: 5.26 mmHg Mean Gradient: 2.88 mmHg AV Area (continuity): 2.92 cm^2 AV VTI: 26.65 cm AV DVI: 0.84 LVOT Peak Velocity: 0.99 m/s Peak Gradient: 3.92 mmHg Mean Velocity: 0.61 m/s Mean Gradient: 1.8 mmHg LVOT Diameter: 2.11 cmLVOT VTI: 22.26 cm LVOT Area: 3.5 cm^2 LVOT SV:77.8 ml LVOT CO: 4.75 l/min LVOT CI: 2.4 l/min/m^2 Tricuspid Valve TR Velocity: 2.6 m/s TR Gradient: 26.94 mmHg Procedure Note Interface, External Ris In - 09/11/2017 4:26 PM RESEARCH STUDY ASSISTANT Transthoracic Echocardiography Report (TTE) Demographics Patient Name GREGORIO BENITEZ Date of Study 09/11/2017 CECE Gender Male Visit Number [id number] Race Unknown Room Number 918 Number Date of 1955 Referring Physician Yenifer Webster Age 61 year(s) Compressor Station Operator Danielle Abrams RDCS Interpreting Gabriel Burrell MD Physician Fellow LUI Mora Procedure Type of Study TTE procedure:2DECHO W DOPPLER(CW/PW/COLOR) (STAT) Indications:Shortness of breath. Clinical History HGB 10.1 HCT 32.1 % CAD, DM, ESRD, HTN, Stroke, PAD, PAF, CHF, Influenza A s/p PCI/stent x 1 (05/31/2013) s/p CABG x 3 (11/21/2014) Contrast Medium: Definity. Amount - 2 ml Height: 69 inches Weight: 81.65 kg (180 lbs) BSA: 1.98 m^2 BMI: 26.58 kg/m^2 HR: 61 bpm BP: 148/65 mmHg Summary 1. Normal LV size and function. LVEF is 55-60%. 2. Diastology: Inconsistent 3. Normal RV size and function 4. Mild MAC 5. Mild TR. Estimated PASP is 25 + clinically estimated RAP. Previous Study In comparison with the prior exam 11/27/14 the following changes are noted: LVEF is improved. PA pressures are increased. Signature Findings Technical Quality: Technically adequate exam. Rhythm/BP Regular sinus rhythm during the exam. Left Ventricle LV endocardium is adequately visualized with IV ultrasound enhancing agent. The left ventricle is chamber size (by vol index) is normal (male - LVED vol - 34-74ml/m2). No evidence of LV hypertrophy. All of the LV segments contract normally . LVEF by Mcleod's method of disk assessment is normal (55-60%) . Septal motion is abnormal, likely related to prior cardiac surgery . Diastology: Inconsistent. Left Atrium LA size is moderately enlarged (42-48 ml/m2) . Right Ventricle The right ventricular chamber size and systolic function are within normal limits. Right Atrium RA size is normal. Aortic Valve Mild AV thickening and calcification. Mitral Valve Mild MAC noted. Tricuspid Valve TV structure is normal. Mild tricuspid regurgitation. Estimated peak systolic pressure is at least 40-45 mmHg. Pulmonic Valve Normal PV structure and function. Aorta Aortic root size (SInus of Valsalva diameter) is normal . Pericardium No pericardial effusion is visualized. IVC/SVC/PA/PV/Pleural The estimated RA pressure by IVC dynamics 11-15mmHg . Chambers/Structures Left Atrium LA Dimension: 4.26 cm LA Area: 25.42 cm^2 LA Volume: 86.36 ml LA Vol. Index: 44 ml/m^2 Left Ventricle LVIDd: 4.96 cm LVIDs: 3.08 cm LV Septum Diastolic: 0.93 cm LV PW Diastolic: 1.16 cm LV FS: 37.9 % LVEDV Mcleod's:106.38 ml LVESV Mcleod's:45.55 ml LVEDVI: 54 ml/m^2 LVEF Mcleod's: 57.2 % LVESVI: 23 ml/m^2 LVOT Diameter: 2.11 cm Right Ventricle TAPSE: 1.24 cm Doppler/Quantitative Measurements Mitral Valve MV Peak E-Wave: 1.43 m/s MV Peak A-Wave: 0.73 m/s E/A Ratio: 1.96 Peak Gradient: 8.19 mmHg MV Paulino. Peak: Tissue Doppler E' Septal Velocity: 0.07 m/s E/E': 19.42 Aortic Valve Peak Velocity: 1.15 m/s Mean Velocity: 0.8 m/s Peak Gradient: 5.26 mmHg Mean Gradient: 2.88 mmHg AV Area (continuity): 2.92 cm^2 AV VTI: 26.65 cm AV DVI: 0.84 LVOT Peak Velocity: 0.99 m/s Peak Gradient: 3.92 mmHg Mean Velocity: 0.61 m/s Mean Gradient: 1.8 mmHg LVOT Diameter: 2.11 cm LVOT VTI: 22.26 cm LVOT Area: 3.5 cm^2 LVOT SV:77.8 ml LVOT CO: 4.75 l/min LVOT CI: 2.4 l/min/m^2 Tricuspid Valve TR Velocity: 2.6 m/s TR Gradient: 26.94 mmHg * POC-Lactic Acid, Venous (09/10/2017 9:52 PM) Only the most recent of 2 results within the time period is included. Component Value Ref Range POC-Lactic Acid, Venous 1.4Comment: TESTED AT [address] 0.9 - 1.7 mmol/[place] [id number] Specimen [place] [address] * Urinalysis w/ Microscopic (09/10/2017 5:37 PM) Component Value Ref Range Color, UA Brown Clarity, UA Cloudy Specific [place], UA 1.019 1.001 - 1.035 pH, UA 5.5 5.0 - 8.0 Protein, UA 200 mg/dL (A) Negative Glucose, UA 30 mg/dL (A) Negative Ketones, UA Negative Negative Bilirubin, UA Negative Negative Blood, UA Large (A) Negative Nitrite, UA Negative Negative Leukocytes, UA Moderate (A) Negative Urobilinogen, UA 0.2 0.2 - 1.0 mg/dL RBC, UA 466 /HPF WBC, UA 36 /HPF Specimen Source Urine, Voided Specimen Performing Laboratory Urine - Urine, [place] [address] * Urine culture (09/10/2017 5:37 PM) Component Value Ref Range Result No growth Specimen Performing Laboratory Urine - Urine, [place] [address] * Blood culture #2 (09/10/2017 5:09 PM) Only the most recent of 2 results within the time period is included. Component Value Ref Range Result No growth in 5 days Specimen Performing Laboratory Blood - Line, [place] [address] * XR chest 2 views (09/10/2017 4:01 PM) Only the most recent of 2 results within the time period is included. Specimen Performing Laboratory GE RIS Narrative FINAL REPORT AP and lateral chest HISTORY: Cough, fever COMPARISON: 02/04/2017 IMPRESSION: Stable cardiac silhouette. Moderate pleural effusions are present. Scarring noted in the lateral left lung. Bibasilar opacities appear to reflect chronic atelectasis. Underlying pneumonia not excluded. No pneumothorax. Signed: Mary Alice Ford MD Report Verified Date/Time:09/10/2017 16:03:57 Reading Location: [facility] Reading Room Procedure Note Interface, External Ris In - 09/10/2017 4:06 PM RESEARCH STUDY ASSISTANT FINAL REPORT AP and lateral chest HISTORY: Cough, fever COMPARISON: 02/04/2017 IMPRESSION: Stable cardiac silhouette. Moderate pleural effusions are present. Scarring noted in the lateral left lung. Bibasilar opacities appear to reflect chronic atelectasis. Underlying pneumonia not excluded. No pneumothorax. Signed: Mary Alice Ford MD Report Verified Date/Time: 09/10/2017 16:03:57 Reading Location: [facility] Reading Room * Rapid Influenza A&B Screen (09/10/2017 3:31 PM) Component Value Ref Range Rapid Influenza A Antigen Positive (A) Negative, Inconclusive Rapid influenza B Antigen Negative Negative, Inconclusive Specimen Performing Laboratory Nasal - Nasopharyngeal [facility] Swab [address] [place] [address] * ECG 12 lead (09/10/2017 3:28 PM) Specimen Performing Laboratory [email or web address] MUSE Narrative Ventricular Rate 76 BPM Atrial Rate 76 BPM P-R Interval 154 ms QRS Duration 90 ms Q-T Interval 426 ms QTC Calculation(Bazett) 479 ms P [place] 66 degrees R [place] 0 degrees T [place] 25 degrees Normal sinus rhythm Possible Inferior wall infarct Poor R wave progression Borderline ECG When compared with ECG of 03-APR-2015 17:46, T wave inversion no longer evident in Lateral leads Confirmed by Jacques SEGAL MICHAEL ([id number]) on 09/11/2017 8:41:20 AM Procedure Note Interface, External Ris In - 09/11/2017 8:41 AM RESEARCH STUDY ASSISTANT Ventricular Rate 76 BPM Atrial Rate 76 BPM P-R Interval 154 ms QRS Duration 90 ms Q-T Interval 426 ms QTC Calculation(Bazett) 479 ms P [place] 66 degrees R [place] 0 degrees T [place] 25 degrees Normal sinus rhythm Possible Inferior wall infarct Poor R wave progression Borderline ECG When compared with ECG of 03-APR-2015 17:46, T wave inversion no longer evident in Lateral leads Confirmed by Jacques SEGAL MICHAEL ([id number]) on 09/11/2017 8:41:20 AM * Troponin I (09/10/2017 3:17 PM) Component Value Ref Range Troponin I 0.23 (HH) 0.00 - 0.03 ng/mL Specimen Performing Laboratory Blood - Arm, [address] [address] Narrative Troponin I (TnI) levels must be interpreted in the context of the presenting symptoms and the clinical findings. Elevated TnI levels indicate myocardial damage, but are not specific for ischemic heart disease. Elevated TnI levels are seen in patients with other cardiac conditions (including myocarditis and congestive heart failure), and slight TnI elevations occur in patients with other conditions, including sepsis, renal failure, acidosis, acute neurological disease, and persistent tachyarrhythmia. * Creatine Kinase (CK), Total and MB (09/10/2017 3:17 PM) Component Value Ref Range Total CK 444 (H) 29 - 200 U/L CK-MB 6.6 0.0 - 6.6 ng/mL MB Relative Index 1.5 % Specimen Performing Laboratory Blood - Arm, [address] [address] Narrative CK-MB Reference Range: <6.7Normal 6.7-10.0Borderline >10.0 Abnormal * POCT Influenza A/B (09/10/2017 2:11 PM) Component Value Ref Range Rapid Influenza A Ag, POC Positive for Influenza A (A) Negative for Influenza A Rapid Influenza B Ag, POC Negative for Influenza B Negative for Influenza B Rapid Influenza Control Control Line Present Line Present?, POC * TSH (09/02/2017 1:42 PM) Component Value Ref Range TSH 4.090 0.450 - 4.50 uIU/mL Specimen Performing Laboratory Blood [facility] Narrative Performed at:01 - [id number] [employer] Pilot: Charles Gómez MD, Phone:[phone] * T4, free (09/02/2017 1:42 PM) Component Value Ref Range T4,Free(Direct) 1.50 0.82 - 1.77 ng/dL Thyroxine (T4) 8.4 4.5 - 12.0 ug/dL Specimen Performing Laboratory Blood [facility] Narrative Performed at:[address] [place], [place] [id number] [employer] Pilot: Charles Gómez MD, Phone:[phone] * Hemoglobin A1c (06/26/2017 11:19 AM) Only the most recent of 2 results within the time period is included. Component Value Ref Range Hemoglobin A1c 6.4 (H) 4.8 - 5.6 % Comment: Pre-diabetes: 5.7 - 6.4 Diabetes: >6.4 Glycemic control for adults with diabetes: <7.0 Specimen Performing Laboratory Blood [facility] Narrative Performed at:[address] [place], [place] [id number] [employer] Pilot: Charles Gómez MD, Phone:[phone] * Lipid panel (06/26/2017 11:19 AM) Only the most recent of 2 results within the time period is included. Component Value Ref Range Cholesterol, Total 124 100 - 199 mg/dL Triglycerides 145 0 - 149 mg/dL HDL Cholesterol 24 (L) >39 mg/dL VLDL Cholesterol Ole[place]andr 29 5 - 40 mg/dL LDL Cholesterol Calc 71 0 - 99 mg/dL LDL/HDL Ratio 3.0 0.0 - 3.6 ratio units Comment: LDL/HDL Ratio Men Women 1/2 Avg.Risk 1.0 1.5 Avg.Risk 3.6 3.2 2X Avg.Risk 6.2 5.0 3X Avg.Risk 8.0 6.1 Specimen Performing Laboratory Blood [facility] Narrative Performed at:[address] [place], [place] [id number] [employer] Pilot: Charles Gómez MD, Phone:[phone] * Comprehensive metabolic panel (06/26/2017 11:19 AM) Only the most recent of 2 results within the time period is included. Component Value Ref Range Glucose, Serum 145 (H) 65 - 99 mg/dL BUN 26 8 - 27 mg/dL Creatinine, Serum 4.71 (H) 0.76 - 1.27 mg/dL eGFR If NonAfricn Am 12 (L) >59 mL/min/1.73 eGFR If Africn Am 14 (L) >59 mL/min/1.73 BUN/Creatinine Ratio 6 (L) 10 - 24 Sodium, Serum 139 134 - 144 mmol/L Potassium, Serum 3.8 3.5 - 5.2 mmol/L Chloride, Serum 94 (L) 96 - 106 mmol/L Carbon Dioxide, Total 30 (H) 18 - 29 mmol/L Calcium, Serum 8.5 (L) 8.6 - 10.2 mg/dL Protein, Total, Serum 7.5 6.0 - 8.5 g/dL Albumin, Serum 3.6 3.6 - 4.8 g/dL Globulin, Total 3.9 1.5 - 4.5 g/dL A/G Ratio 0.9 (L) 1.2 - 2.2 Bilirubin, Total 0.5 0.0 - 1.2 mg/dL Alkaline Phosphatase, S 77 39 - 117 IU/L AST (SGOT) 14 0 - 40 IU/L ALT (SGPT) 7 0 - 44 IU/L Specimen Performing Laboratory Blood [facility] Narrative Performed at:[address] [place], [place] [id number] [employer]: Charles Gómez MD, Phone:[phone] * T4F (02/04/2017 10:55 AM) Component Value Ref Range T4,Free (Direct) 1.55 0.82 - 1.77 ng/dL Specimen Performing Laboratory [facility] Narrative Performed at:[address] [place], [place] [id number] [employer] Pilot: Charles Gómez MD, Phone:[phone] * TSH/Free T4 If Indicated (02/04/2017 10:55 AM) Component Value Ref Range TSH 6.280 (H) 0.450 - 4.50 uIU/mL Specimen Performing Laboratory Blood [facility] Narrative Performed at:[address] [place], [place] [id number] [employer] Pilot: Charles Gómez MD, Phone:[phone] after 10/27/2016
--- OUTSIDE RECORDS SUMMARY | 2017-10-28 16:04 | XMS REPORT ---
Author Author [facility] Address Unknown Phone Unavailable Care Team Providers Care Emergency Medical Technician Name Role Phone ADRIAN SANDERS Unavailable Unavailable RUDDY PAPPAS Unavailable Unavailable Problems This patient has no known problems. Allergies, Adverse Reactions, Alerts This patient has no known allergies or adverse reactions. Medications This patient has no known medications. Results Test Description Test Time Test Comments Text Results Atomic Results Result Comments POCT-GLUCOSE METER 2017-10-16 11:21:00 POC-GLUCOSE METER (BEAKER) (test avah=5452) 328 mg/dL 70-110 TESTED AT [facility] [address] [facility] [address] CBC W/PLT COUNT & AUTO [id number] 09:27:00* Test Item Value Reference Range Comments WHITE BLOOD CELL COUNT (BEAKER) (test nkws=776) 14.8 K/ L 3.5-10.5 RED BLOOD CELL COUNT (BEAKER) (test yqca=334) 3.43 M/ L 4.63-6.08 HEMOGLOBIN (BEAKER) (test pikr=353) 10.2 GM/DL 13.7-17.5 HEMATOCRIT (BEAKER) (test rivr=880) 32.8 % 40.1-51.0 MEAN CORPUSCULAR VOLUME (BEAKER) (test burc=080) 95.6 fL 79.0-92.2 MEAN CORPUSCULAR HEMOGLOBIN (BEAKER) (test dovf=906) 29.7 pg 25.7-32.2 MEAN CORPUSCULAR HEMOGLOBIN CONC (BEAKER) (test yxus=016) 31.1 GM/DL 32.3- 36.5 RED CELL DISTRIBUTION WIDTH (BEAKER) (test txbu=690) 15.7 % 11.6-14.4 PLATELET COUNT (BEAKER) (test pnba=940) 260 K/CU MM 150-450 MEAN PLATELET VOLUME (BEAKER) (test iamd=438) 9.6 fL 9.4-12.4 NUCLEATED RED BLOOD CELLS (BEAKER) (test equn=977) 0 /100 WBC 0-0 NEUTROPHILS RELATIVE PERCENT (BEAKER) (test nkkn=327) 93 % LYMPHOCYTES RELATIVE PERCENT (BEAKER) (test sfrw=182) 4 % MONOCYTES RELATIVE PERCENT (BEAKER) (test iedg=107) 3 % EOSINOPHILS RELATIVE PERCENT (BEAKER) (test paki=655) 0 % BASOPHILS RELATIVE PERCENT (BEAKER) (test dnca=240) 0 % NEUTROPHILS ABSOLUTE COUNT (BEAKER) (test vtmv=078) 13.73 K/ L 1.78-5.38 LYMPHOCYTES ABSOLUTE COUNT (BEAKER) (test zqhz=686) 0.54 K/ L 1.32-3.57 MONOCYTES ABSOLUTE COUNT (BEAKER) (test fhre=502) 0.43 K/ L 0.30-0.82 EOSINOPHILS ABSOLUTE COUNT (BEAKER) (test qrdv=445) 0.00 K/ L 0.04-0.54 BASOPHILS ABSOLUTE COUNT (BEAKER) (test dsub=497) 0.00 K/ L 0.01-0.08 IMMATURE GRANULOCYTES-RELATIVE PERCENT (BEAKER) (test ahrk=5024) 1 % 0-1 BASIC METABOLIC [id number] 08:01:00* Test Item Value Reference Range Comments SODIUM (BEAKER) (test aewz=017) 135 meq/L 136-145 POTASSIUM (BEAKER) (test ktqr=206) 4.0 meq/L 3.5-5.1 CHLORIDE (BEAKER) (test hidc=649) 97 meq/L 98-107 CO2 (BEAKER) (test phue=368) 29 meq/L 22-29 BLOOD UREA NITROGEN (BEAKER) (test menm=624) 33 mg/dL 7-21 CREATININE (BEAKER) (test upsb=969) 4.29 mg/dL 0.57-1.25 GLUCOSE RANDOM (BEAKER) (test phgd=799) 233 mg/dL 70-105 CALCIUM (BEAKER) (test kpga=138) 8.4 mg/dL 8.4-10.2 EGFR (BEAKER) (test ecac=3860) 14 mL/min/1.73 sq m ESTIMATED GFR IS NOT ACCURATE CREATININE CLEARANCE IN PREDICTING GLOMERULAR FILTRATION RATE. ESTIMATED GFR IS NOT APPLICABLE FOR DIALYSIS PATIENTS. POCT-GLUCOSE [id number] 07:57:00* Test Item Value Reference Range Comments POC-GLUCOSE METER (BEAKER) (test ioxy=1866) 259 mg/dL 70-110 TESTED AT [facility] [address] [facility] [address] [id number] 07:20:00* Test Item Value Reference Range Comments MAGNESIUM (BEAKER) (test kfnb=581) 1.9 mg/dL 1.6-2.6 PROTHROMBIN [id number] 07:12:00* Test Item Value Reference Range Comments PROTIME (BEAKER) (test qgvn=472) 23.4 seconds 11.7-14.7 INR (BEAKER) (test bwwn=152) 2.1 <=5.9 RECOMMENDED COUMADIN/WARFARIN INR THERAPY RANGESSTANDARD DOSE: 2.0 - 3.0 Includes: PROPHYLAXIS for venous thrombosis, systemic embolization; TREATMENT for venous thrombosis and/or pulmonary embolus.HIGH RISK: Target INR is 2.5-3.5 for patients with mechanical heart valves.While on warfarin.POCT-GLUCOSE [id number] 22:43:00* Test Item Value Reference Range Comments POC-GLUCOSE METER (BEAKER) (test akdp=7201) 209 mg/dL 70-110 TESTED AT [facility] [address] [facility] [address] CT, CHEST, WITHOUT [id number] 18:53:00Please arrange CT scan to be done after HD on 10/15/17. Thanks.FINAL REPORT CT scan of the chest. MEDICAL HISTORY: Persistent cough. COMPARISON STUDY: CT scan dated January. Chest x-ray dated October 12, 2017 TECHNIQUE: Contiguous helical slices were acquired through the thorax without the administration of contrast. This exam was performed according to our department dose optimization program which includes automated exposure control, adjustment of the mA and/or kV according to the patient's size and/or use of iterative reconstruction technique. FINDINGS : The mediastinum demonstrates epicardial pacer wires. Atherosclerosis [...] windows demonstrate poststernotomy changes and degenerative changes. IMPRESSION:1. Mild to moderate right-sided and trace left-sided pleural effusion with likely adjacent rounded atelectasis. The size of the effusions is smaller than on previous.2. Increase in groundglass, patchy airspace and reticulonodular markings as compared to previous. Multiple new nodules are also seen. This could either be followed up with short-term three-month CT scan or CT/PET scan to exclude suspicious nodules.3. Potential etiologies include volume overload or atypical infection. Signed: Camilo Laguerre MDReport Verified Date/Time: 18:53:51 Reading Location: [address] Consult Reading Room - GLUCOSE [id number] 12:37:00* Test Item Value Reference Range Comments POC-GLUCOSE METER (BEAKER) (test xdsc=8766) 92 mg/dL 70-110 TESTED AT [place] [id number] [facility] [address] POCT-GLUCOSE [id number] 07:17:00* Test Item Value Reference Range Comments POC-GLUCOSE METER (BEAKER) (test zjcr=0034) 217 mg/dL 70-110 TESTED AT [address] [address] BASIC METABOLIC [id number] 06:52:00* Test Item Value Reference Range Comments SODIUM (BEAKER) (test grnv=468) 132 meq/L 136-145 POTASSIUM (BEAKER) (test rhfc=232) 4.4 meq/L 3.5-5.1 Specimen slightly hemolyzed CHLORIDE (BEAKER) (test qxmk=728) 96 meq/L 98-107 CO2 (BEAKER) (test lgre=468) 26 meq/L 22-29 BLOOD UREA NITROGEN (BEAKER) (test jhmy=508) 30 mg/dL 7-21 CREATININE (BEAKER) (test oibu=931) 5.30 mg/dL 0.57-1.25 Specimen slightly hemolyzed GLUCOSE RANDOM (BEAKER) (test ltmr=014) 187 mg/dL 70-105 CALCIUM (BEAKER) (test bpzn=688) 7.9 mg/dL 8.4-10.2 EGFR (BEAKER) (test ctha=3015) 11 mL/min/1.73 sq m ESTIMATED GFR IS NOT ACCURATE CREATININE CLEARANCE IN PREDICTING GLOMERULAR FILTRATION RATE. ESTIMATED GFR IS NOT APPLICABLE FOR DIALYSIS PATIENTS. CBC W/PLT COUNT & AUTO [id number] 06:49:00* Test Item Value Reference Range Comments WHITE BLOOD CELL COUNT (BEAKER) (test uxei=315) 16.9 K/ L 3.5-10.5 RED BLOOD CELL COUNT (BEAKER) (test ddwt=730) 3.14 M/ L 4.63-6.08 HEMOGLOBIN (BEAKER) (test zdyl=111) 9.5 GM/DL 13.7-17.5 HEMATOCRIT (BEAKER) (test dpaf=548) 30.0 % 40.1-51.0 MEAN CORPUSCULAR VOLUME (BEAKER) (test ppui=040) 95.5 fL 79.0-92.2 MEAN CORPUSCULAR HEMOGLOBIN (BEAKER) (test cgak=773) 30.3 pg 25.7-32.2 MEAN CORPUSCULAR HEMOGLOBIN CONC (BEAKER) (test wzmp=533) 31.7 GM/DL 32.3- 36.5 RED CELL DISTRIBUTION WIDTH (BEAKER) (test lumy=022) 15.8 % 11.6-14.4 PLATELET COUNT (BEAKER) (test fzjo=432) 254 K/CU MM 150-450 MEAN PLATELET VOLUME (BEAKER) (test bnfq=373) 9.9 fL 9.4-12.4 NUCLEATED RED BLOOD CELLS (BEAKER) (test admv=579) 0 /100 WBC 0-0 NEUTROPHILS RELATIVE PERCENT (BEAKER) (test ammk=461) 94 % LYMPHOCYTES RELATIVE PERCENT (BEAKER) (test nnfd=089) 3 % MONOCYTES RELATIVE PERCENT (BEAKER) (test jhdu=715) 3 % EOSINOPHILS RELATIVE PERCENT (BEAKER) (test zwdt=941) 0 % BASOPHILS RELATIVE PERCENT (BEAKER) (test ygww=825) 0 % NEUTROPHILS ABSOLUTE COUNT (BEAKER) (test qfgq=353) 15.80 K/ L 1.78-5.38 LYMPHOCYTES ABSOLUTE COUNT (BEAKER) (test zuju=917) 0.48 K/ L 1.32-3.57 MONOCYTES ABSOLUTE COUNT (BEAKER) (test sqji=442) 0.46 K/ L 0.30-0.82 EOSINOPHILS ABSOLUTE COUNT (BEAKER) (test uzcy=220) 0.00 K/ L 0.04-0.54 BASOPHILS ABSOLUTE COUNT (BEAKER) (test ugtn=836) 0.01 K/ L 0.01-0.08 IMMATURE GRANULOCYTES-RELATIVE PERCENT (BEAKER) (test qikl=5719) 1 % 0-1 [id number] 06:45:00* Test Item Value Reference Range Comments MAGNESIUM (BEAKER) (test uicp=158) 1.6 mg/dL 1.6-2.6 Specimen slightly hemolyzed PROTHROMBIN TIME/[id number] 06:38:00* Test Item Value Reference Range Comments PROTIME (BEAKER) (test ofdi=198) 26.5 seconds 11.7-14.7 INR (BEAKER) (test jjzt=206) 2.4 <=5.9 RECOMMENDED COUMADIN/WARFARIN INR THERAPY RANGESSTANDARD DOSE: 2.0 - 3.0 Includes: PROPHYLAXIS for venous thrombosis, systemic embolization; TREATMENT for venous thrombosis and/or pulmonary embolus.HIGH RISK: Target INR is 2.5-3.5 for patients with mechanical heart valves.While on warfarin.POCT-GLUCOSE [id number] 22:57:00* Test Item Value Reference Range Comments POC-GLUCOSE METER (BEAKER) (test uurg=8708) 194 mg/dL 70-110 TESTED AT [facility] [address] [facility] [address] POCT-GLUCOSE [id number] 17:40:00* Test Item Value Reference Range Comments POC-GLUCOSE METER (BEAKER) (test ebxx=0120) 180 mg/dL 70-110 TESTED AT [facility] [address] [facility] [place] [address] CBC W/PLT COUNT & AUTO [id number] 13:25:00* Test Item Value Reference Range Comments WHITE BLOOD CELL COUNT (BEAKER) (test mfts=786) 14.3 K/ L 3.5-10.5 RED BLOOD CELL COUNT (BEAKER) (test oavs=624) 3.19 M/ L 4.63-6.08 HEMOGLOBIN (BEAKER) (test pyic=890) 9.6 GM/DL 13.7-17.5 HEMATOCRIT (BEAKER) (test gsmk=573) 30.2 % 40.1-51.0 MEAN CORPUSCULAR VOLUME (BEAKER) (test hxgo=137) 94.7 fL 79.0-92.2 MEAN CORPUSCULAR HEMOGLOBIN (BEAKER) (test dttu=507) 30.1 pg 25.7-32.2 MEAN CORPUSCULAR HEMOGLOBIN CONC (BEAKER) (test dqbg=642) 31.8 GM/DL 32.3- 36.5 RED CELL DISTRIBUTION WIDTH (BEAKER) (test wytv=319) 15.9 % 11.6-14.4 PLATELET COUNT (BEAKER) (test dfse=111) 272 K/CU MM 150-450 MEAN PLATELET VOLUME (BEAKER) (test woks=660) 9.6 fL 9.4-12.4 NUCLEATED RED BLOOD CELLS (BEAKER) (test dmik=060) 0 /100 WBC 0-0 NEUTROPHILS RELATIVE PERCENT (BEAKER) (test wefe=751) 91 % LYMPHOCYTES RELATIVE PERCENT (BEAKER) (test udvu=153) 3 % MONOCYTES RELATIVE PERCENT (BEAKER) (test ghto=185) 5 % EOSINOPHILS RELATIVE PERCENT (BEAKER) (test yjry=528) 0 % BASOPHILS RELATIVE PERCENT (BEAKER) (test dqkx=242) 0 % NEUTROPHILS ABSOLUTE COUNT (BEAKER) (test mkyy=017) 13.03 K/ L 1.78-5.38 LYMPHOCYTES ABSOLUTE COUNT (BEAKER) (test sbxi=458) 0.37 K/ L 1.32-3.57 MONOCYTES ABSOLUTE COUNT (BEAKER) (test zpux=646) 0.73 K/ L 0.30-0.82 EOSINOPHILS ABSOLUTE COUNT (BEAKER) (test vfin=480) 0.00 K/ L 0.04-0.54 BASOPHILS ABSOLUTE COUNT (BEAKER) (test izpy=307) 0.01 K/ L 0.01-0.08 IMMATURE GRANULOCYTES-RELATIVE PERCENT (BEAKER) (test waqx=8848) 1 % 0-1 BASIC METABOLIC [id number] 12:34:00* Test Item Value Reference Range Comments SODIUM (BEAKER) (test rlka=408) 140 meq/L 136-145 POTASSIUM (BEAKER) (test iwhu=260) 3.8 meq/L 3.5-5.1 CHLORIDE (BEAKER) (test gtlq=377) 104 meq/L 98-107 CO2 (BEAKER) (test cuuf=943) 26 meq/L 22-29 BLOOD UREA NITROGEN (BEAKER) (test ojrn=888) 16 mg/dL 7-21 CREATININE (BEAKER) (test hexq=420) 3.95 mg/dL 0.57-1.25 GLUCOSE RANDOM (BEAKER) (test mdxz=621) 223 mg/dL 70-105 CALCIUM (BEAKER) (test mseh=795) 8.3 mg/dL 8.4-10.2 EGFR (BEAKER) (test ljil=4991) 15 mL/min/1.73 sq m ESTIMATED GFR IS NOT ACCURATE CREATININE CLEARANCE IN PREDICTING GLOMERULAR FILTRATION RATE. ESTIMATED GFR IS NOT APPLICABLE FOR DIALYSIS PATIENTS. POCT-GLUCOSE [id number] 12:16:00* Test Item Value Reference Range Comments POC-GLUCOSE METER (BEAKER) (test foxl=3533) 235 mg/dL 70-110 TESTED AT [facility] [address] [facility] [address] [id number] 11:57:00* Test Item Value Reference Range Comments MAGNESIUM (BEAKER) (test xllu=025) 1.7 mg/dL 1.6-2.6 PROTHROMBIN [id number] 07:23:00* Test Item Value Reference Range Comments PROTIME (BEAKER) (test sddm=907) 21.7 seconds 11.7-14.7 INR (BEAKER) (test edim=500) 1.9 <=5.9 RECOMMENDED COUMADIN/WARFARIN INR THERAPY RANGESSTANDARD DOSE: 2.0 - 3.0 Includes: PROPHYLAXIS for venous thrombosis, systemic embolization; TREATMENT for venous thrombosis and/or pulmonary embolus.HIGH RISK: Target INR is 2.5-3.5 for patients with mechanical heart valves.While on warfarin.POCT-GLUCOSE [id number] 07:15:00* Test Item Value Reference Range Comments POC-GLUCOSE METER (BEAKER) (test huiy=1918) 212 mg/dL 70-110 TESTED AT [place] [id number] POCT-GLUCOSE [id number] 23:58:00* Test Item Value Reference Range Comments POC-GLUCOSE METER (BEAKER) (test cfzz=9609) 136 mg/dL 70-110 TESTED AT [place] [address] HEPATITIS B SURFACE [id number] 22:05:00* Test Item Value Reference Range Comments HEPATITIS B SURFACE ANTIGEN (2) (BEAKER) (test pknv=3757) Nonreactive Nonreactive POCT-GLUCOSE [id number] 17:56:00* Test Item Value Reference Range Comments POC-GLUCOSE METER (BEAKER) (test ekdj=7953) 277 mg/dL 70-110 TESTED AT [place] [address] [id number] 17:05:00* Test Item Value Reference Range Comments POTASSIUM (BEAKER) (test rnck=358) 3.3 meq/L 3.5-5.1 POCT-GLUCOSE [id number] 12:25:00* Test Item Value Reference Range Comments POC-GLUCOSE METER (BEAKER) (test gskq=1199) 159 mg/dL 70-110 TESTED AT [place] [id number] POCT-GLUCOSE [id number] 12:25:00* Test Item Value Reference Range Comments POC-GLUCOSE METER (BEAKER) (test cnmf=3075) 193 mg/dL 70-110 TESTED AT [place] [id number] CBC W/PLT COUNT & AUTO [id number] 10:45:00* Test Item Value Reference Range Comments WHITE BLOOD CELL COUNT (BEAKER) (test qjge=817) 8.9 K/ L 3.5-10.5 RED BLOOD CELL COUNT (BEAKER) (test facw=622) 2.94 M/ L 4.63-6.08 HEMOGLOBIN (BEAKER) (test uwpr=250) 8.9 GM/DL 13.7-17.5 HEMATOCRIT (BEAKER) (test ahlm=145) 27.8 % 40.1-51.0 MEAN CORPUSCULAR VOLUME (BEAKER) (test dfsk=907) 94.6 fL 79.0-92.2 MEAN CORPUSCULAR HEMOGLOBIN (BEAKER) (test cqaj=288) 30.3 pg 25.7-32.2 MEAN CORPUSCULAR HEMOGLOBIN CONC (BEAKER) (test mlpm=378) 32.0 GM/DL 32.3- 36.5 RED CELL DISTRIBUTION WIDTH (BEAKER) (test tjjr=504) 15.6 % 11.6-14.4 PLATELET COUNT (BEAKER) (test ompz=026) 225 K/CU MM 150-450 MEAN PLATELET VOLUME (BEAKER) (test yhuj=762) 9.8 fL 9.4-12.4 NUCLEATED RED BLOOD CELLS (BEAKER) (test wnkm=511) 0 /100 WBC 0-0 IMMATURE GRANULOCYTES-RELATIVE PERCENT (BEAKER) (test kgqc=5963) 1 % 0-1 (MANUAL DIFFERENTIAL)2017-10-13 10:45:00* Test Item Value Reference Range Comments NEUTROPHILS - REL (DIFF) (BEAKER) (test wmxh=0844) 96 % LYMPHOCYTES - REL (DIFF) (BEAKER) (test lsix=5714) 2 % MONOCYTES - REL (DIFF) (BEAKER) (test izdr=7204) 2 % EOSINOPHILS - REL (DIFF) (BEAKER) (test uzfl=4701) 0 % BASOPHILS - REL (DIFF) (BEAKER) (test stro=7187) 0 % NEUTROPHILS - ABS (DIFF) (BEAKER) (test uhjx=5719) 8.54 K/ L 1.80-8.00 LYMPHOCYTES - ABS (DIFF) (BEAKER) (test quag=3562) 0.18 K/ L 1.48-4.50 MONOCYTES - ABS (DIFF) (BEAKER) (test lmur=4042) 0.18 K/ L 0.00-1.30 EOSINOPHILS - ABS (DIFF) (BEAKER) (test wvlw=4103) 0.00 K/ L 0.00-0.50 BASOPHILS - ABS (DIFF) (BEAKER) (test fyah=4956) 0.00 K/ L 0.00-0.20 TOTAL COUNTED (BEAKER) (test ldhr=5640) 100 WBC MORPHOLOGY (BEAKER) (test sdmh=586) Normal PLT MORPHOLOGY (BEAKER) (test hymi=715) Normal RBC MORPHOLOGY (BEAKER) (test roko=819) Normal RESPIRATORY PANEL [id number] 07:12:00* Test Item Value Reference Range Comments HUMAN METAPNEUMOVIRUS (BEAKER) (test jloa=4411) Not detected Not detected, Inconclusive RHINOVIRUS (BEAKER) (test bdmv=1095) Not detected Not detected, Inconclusive INFLUENZA A (BEAKER) (test xeal=5202) Not detected Not detected, Inconclusive INFLUENZA A SUBTYPE H1 (BEAKER) (test doau=4789) Not detected Not detected, Inconclusive INFLUENZA A SUBTYPE H3 (BEAKER) (test xhig=0408) Not detected Not detected, Inconclusive INFLUENZA A SUBTYPE H1-2009 (BEAKER) (test txnd=7222) Not detected Not detected, Inconclusive INFLUENZA B (BEAKER) (test ftoc=8248) Not detected Not detected, Inconclusive RESPIRATORY SYNCYTIAL VIRUS (BEAKER) (test fwmx=6393) Not detected Not detected, Inconclusive PARAINFLUENZA VIRUS 1 (BEAKER) (test ucrd=7717) Not detected Not detected, Inconclusive PARAINFLUENZA VIRUS 2 (BEAKER) (test nqke=4723) Not detected Not detected, Inconclusive PARAINFLUENZA VIRUS 3 (BEAKER) (test znwt=4772) Not detected Not detected, Inconclusive PARAINFLUENZA VIRUS 4 (BEAKER) (test swvs=9062) Not detected Not detected, Inconclusive ADENOVIRUS (BEAKER) (test pukx=0596) Not detected Not detected, Inconclusive CORONAVIRUS 229E (BEAKER) (test xwem=7809) Not detected Not detected, Inconclusive CORONAVIRUS HKU1 (BEAKER) (test bncu=6384) Not detected Not detected, Inconclusive CORONAVIRUS NL63 (BEAKER) (test ohpe=3979) Not detected Not detected, Inconclusive CORONAVIRUS OC43 (BEAKER) (test ryot=6165) Not detected Not detected, Inconclusive BORDETELLA PERTUSSIS (BEAKER) (test cfrq=8939) Not detected Not detected, Inconclusive CHLAMYDOPHILA PNEUMONIAE (BEAKER) (test asfh=3590) Not detected Not detected , Inconclusive MYCOPLASMA PNEUMONIAE (BEAKER) (test ewkj=8536) Not detected Not detected, Inconclusive BASIC METABOLIC [id number] 06:52:00* Test Item Value Reference Range Comments SODIUM (BEAKER) (test fdyc=662) 134 meq/L 136-145 POTASSIUM (BEAKER) (test gtqc=592) 3.7 meq/L 3.5-5.1 Specimen slightly hemolyzed CHLORIDE (BEAKER) (test bzbc=906) 95 meq/L 98-107 CO2 (BEAKER) (test qfbl=809) 25 meq/L 22-29 BLOOD UREA NITROGEN (BEAKER) (test vozk=508) 35 mg/dL 7-21 CREATININE (BEAKER) (test krle=714) 8.00 mg/dL 0.57-1.25 Specimen slightly hemolyzed GLUCOSE RANDOM (BEAKER) (test usik=323) 167 mg/dL 70-105 CALCIUM (BEAKER) (test bmch=318) 8.0 mg/dL 8.4-10.2 EGFR (BEAKER) (test colr=0140) 7 mL/min/1.73 sq m ESTIMATED GFR IS NOT ACCURATE CREATININE CLEARANCE IN PREDICTING GLOMERULAR FILTRATION RATE. ESTIMATED GFR IS NOT APPLICABLE FOR DIALYSIS PATIENTS. [id number] 06:48:00* Test Item Value Reference Range Comments MAGNESIUM (BEAKER) (test yirv=133) 1.9 mg/dL 1.6-2.6 Specimen slightly hemolyzed PROTHROMBIN TIME/[id number] 06:24:00* Test Item Value Reference Range Comments PROTIME (BEAKER) (test sort=672) 18.0 seconds 11.7-14.7 INR (BEAKER) (test lity=967) 1.5 <=5.9 RECOMMENDED COUMADIN/WARFARIN INR THERAPY RANGESSTANDARD DOSE: 2.0 - 3.0 Includes: PROPHYLAXIS for venous thrombosis, systemic embolization; TREATMENT for venous thrombosis and/or pulmonary embolus.HIGH RISK: Target INR is 2.5-3.5 for patients with mechanical heart valves.While on warfarin.RAD, CHEST, 1 VIEW, NON [id number] 22:36:00Reason for exam:->pNAShould this be performed at the bedside?->YesFINAL REPORT EXAMINATION: AP PORTABLE CHEST RADIOGRAPH CLINICAL INDICATION: Pneumonia IMPRESSION: Compared with 2016. A midline sternotomy is again noted. The enlarged heart, basilar lung opacities and bilateral pleural effusions are grossly stable. A vascular stent is again noted along the expected course of the left innominate vein. No evidence of an acute osseous abnormality or pneumothorax. In summary, no significant interval change. Signed: Jaky Thompson MDReport Verified Date/Time: 10/12/2017 22:36:28 Reading Location: [address] Reading Room B-TYPE NATRIURETIC FACTOR (BNP)2017-10-12 22:04:00* Test Item Value Reference Range Comments B-TYPE NATRIURETIC PEPTIDE (BEAKER) (test umvx=041) 1342 pg/mL 0-100 BASIC METABOLIC [id number] 21:58:00* Test Item Value Reference Range Comments SODIUM (BEAKER) (test tkzt=668) 134 meq/L 136-145 POTASSIUM (BEAKER) (test dhjp=678) 2.8 meq/L 3.5-5.1 CHLORIDE (BEAKER) (test lydt=314) 96 meq/L 98-107 CO2 (BEAKER) (test egxu=675) 27 meq/L 22-29 BLOOD UREA NITROGEN (BEAKER) (test fngj=394) 31 mg/dL 7-21 CREATININE (BEAKER) (test irmi=692) 7.44 mg/dL 0.57-1.25 GLUCOSE RANDOM (BEAKER) (test ubwk=659) 100 mg/dL 70-105 CALCIUM (BEAKER) (test mxbq=544) 7.7 mg/dL 8.4-10.2 EGFR (BEAKER) (test owzx=4223) 7 mL/min/1.73 sq m ESTIMATED GFR IS NOT ACCURATE CREATININE CLEARANCE IN PREDICTING GLOMERULAR FILTRATION RATE. ESTIMATED GFR IS NOT APPLICABLE FOR DIALYSIS PATIENTS. LACTIC ACID, VENOUS, WHOLE [id number] 21:53:00* Test Item Value Reference Range Comments LACTATE BLOOD VENOUS (2) (BEAKER) (test zktw=1648) 1.0 mmol/L 0.5-2.2 Effective 01/23/2016: Units/Reference Range ChangeNew: 0.5-2.2 mmol/L Previous: 5 -20 mg/dLCBC W/PLT COUNT & AUTO [id number] 21:44:00* Test Item Value Reference Range Comments WHITE BLOOD CELL COUNT (BEAKER) (test sryn=956) 8.6 K/ L 3.5-10.5 RED BLOOD CELL COUNT (BEAKER) (test pgha=943) 2.72 M/ L 4.63-6.08 HEMOGLOBIN (BEAKER) (test qaij=011) 8.4 GM/DL 13.7-17.5 HEMATOCRIT (BEAKER) (test ieaf=588) 26.0 % 40.1-51.0 MEAN CORPUSCULAR VOLUME (BEAKER) (test pmel=967) 95.6 fL 79.0-92.2 MEAN CORPUSCULAR HEMOGLOBIN (BEAKER) (test llzk=453) 30.9 pg 25.7-32.2 MEAN CORPUSCULAR HEMOGLOBIN CONC (BEAKER) (test ssyq=288) 32.3 GM/DL 32.3- 36.5 RED CELL DISTRIBUTION WIDTH (BEAKER) (test czmo=456) 15.6 % 11.6-14.4 PLATELET COUNT (BEAKER) (test amnq=920) 213 K/CU MM 150-450 MEAN PLATELET VOLUME (BEAKER) (test xwvr=471) 9.6 fL 9.4-12.4 NUCLEATED RED BLOOD CELLS (BEAKER) (test zrvr=529) 0 /100 WBC 0-0 NEUTROPHILS RELATIVE PERCENT (BEAKER) (test qsje=939) 76 % LYMPHOCYTES RELATIVE PERCENT (BEAKER) (test fxwu=271) 16 % MONOCYTES RELATIVE PERCENT (BEAKER) (test zpss=428) 7 % EOSINOPHILS RELATIVE PERCENT (BEAKER) (test ukcl=890) 1 % BASOPHILS RELATIVE PERCENT (BEAKER) (test tzaj=229) 0 % NEUTROPHILS ABSOLUTE COUNT (BEAKER) (test bjfq=364) 6.54 K/ L 1.78-5.38 LYMPHOCYTES ABSOLUTE COUNT (BEAKER) (test pjad=191) 1.36 K/ L 1.32-3.57 MONOCYTES ABSOLUTE COUNT (BEAKER) (test mjgs=425) 0.59 K/ L 0.30-0.82 EOSINOPHILS ABSOLUTE COUNT (BEAKER) (test syfk=428) 0.09 K/ L 0.04-0.54 BASOPHILS ABSOLUTE COUNT (BEAKER) (test auoy=072) 0.00 K/ L 0.01-0.08 IMMATURE GRANULOCYTES-RELATIVE PERCENT (BEAKER) (test ibcs=8912) 1 % 0-1 POCT-GLUCOSE [id number] 21:11:00* Test Item Value Reference Range Comments POC-GLUCOSE METER (BEAKER) (test acfe=6977) 117 mg/dL 70-110 TESTED AT [facility] [address] [facility] [address] POCT-GLUCOSE [id number] 18:14:00* Test Item Value Reference Range Comments POC-GLUCOSE METER (BEAKER) (test rfrg=4834) 133 mg/dL 70-110 TESTED AT [address] [address] BASIC METABOLIC [id number] 16:11:00* Test Item Value Reference Range Comments SODIUM (BEAKER) (test dgzh=972) 138 meq/L 136-145 POTASSIUM (BEAKER) (test aryt=617) 4.1 meq/L 3.5-5.1 Specimen moderately hemolyzed CHLORIDE (BEAKER) (test cdvg=015) 98 meq/L 98-107 CO2 (BEAKER) (test krjp=718) 26 meq/L 22-29 BLOOD UREA NITROGEN (BEAKER) (test tmqa=838) 77 mg/dL 7-21 CREATININE (BEAKER) (test lwry=304) 8.25 mg/dL 0.57-1.25 Specimen moderately hemolyzed GLUCOSE RANDOM (BEAKER) (test ikaa=685) 147 mg/dL 70-105 CALCIUM (BEAKER) (test gqcc=053) 8.1 mg/dL 8.4-10.2 EGFR (BEAKER) (test dzgb=7985) 7 mL/min/1.73 sq m ESTIMATED GFR IS NOT ACCURATE CREATININE CLEARANCE IN PREDICTING GLOMERULAR FILTRATION RATE. ESTIMATED GFR IS NOT APPLICABLE FOR DIALYSIS PATIENTS. PT/[id number] 15:14:00* Test Item Value Reference Range Comments PROTIME (BEAKER) (test gwjh=807) 23.0 seconds 11.7-14.7 INR (BEAKER) (test kgvq=746) 2.0 <=5.9 PARTIAL THROMBOPLASTIN TIME (BEAKER) (test hhbf=314) 33.8 seconds 22.5-36.0 RECOMMENDED COUMADIN/WARFARIN INR THERAPY RANGESSTANDARD DOSE: 2.0 - 3.0 Includes: PROPHYLAXIS for venous thrombosis, systemic embolization; TREATMENT for venous thrombosis and/or pulmonary embolus.HIGH RISK: Target INR is 2.5-3.5 for patients with mechanical heart valves.CT, BRAIN, WITHOUT [id number] 15:14:00Reason for exam:->FALLWhat is the patient's sedation requirement?->No SedationFINAL REPORT CT Head without contrast CLINICAL HISTORY: FALLFall TECHNIQUE: Contiguous axial images through the head [...] There is generalized parenchymal volume loss without hydrocephalus , midline shift, or apparent mass effect. The paranasal sinuses are well- aerated. IMPRESSION: No evidence of skull fracture or intracranial hemorrhage. Signed: Mora Ornelas MDReport Verified Date/Time: 09/22/2017 15:14:56 Reading Location: [facility] Radiology Reading Room W/PLT COUNT & AUTO [id number] 15:02:00* Test Item Value Reference Range Comments WHITE BLOOD CELL COUNT (BEAKER) (test swxw=573) 8.1 K/ L 3.5-10.5 RED BLOOD CELL COUNT (BEAKER) (test rjcx=976) 4.09 M/ L 4.63-6.08 HEMOGLOBIN (BEAKER) (test xfuq=382) 12.4 GM/DL 13.7-17.5 HEMATOCRIT (BEAKER) (test tykc=794) 39.1 % 40.1-51.0 MEAN CORPUSCULAR VOLUME (BEAKER) (test mdbr=226) 95.6 fL 79.0-92.2 MEAN CORPUSCULAR HEMOGLOBIN (BEAKER) (test uwcr=231) 30.3 pg 25.7-32.2 MEAN CORPUSCULAR HEMOGLOBIN CONC (BEAKER) (test xrwg=290) 31.7 GM/DL 32.3- 36.5 RED CELL DISTRIBUTION WIDTH (BEAKER) (test emjp=004) 15.2 % 11.6-14.4 PLATELET COUNT (BEAKER) (test hppi=261) 149 K/CU MM 150-450 MEAN PLATELET VOLUME (BEAKER) (test zxvi=058) 10.7 fL 9.4-12.4 NUCLEATED RED BLOOD CELLS (BEAKER) (test wucv=687) 0 /100 WBC 0-0 NEUTROPHILS RELATIVE PERCENT (BEAKER) (test cfae=159) 78 % LYMPHOCYTES RELATIVE PERCENT (BEAKER) (test hvyx=622) 13 % MONOCYTES RELATIVE PERCENT (BEAKER) (test agzr=470) 7 % EOSINOPHILS RELATIVE PERCENT (BEAKER) (test drpc=857) 2 % BASOPHILS RELATIVE PERCENT (BEAKER) (test lcew=651) 0 % NEUTROPHILS ABSOLUTE COUNT (BEAKER) (test ikho=209) 6.32 K/ L 1.78-5.38 LYMPHOCYTES ABSOLUTE COUNT (BEAKER) (test bkmw=023) 1.07 K/ L 1.32-3.57 MONOCYTES ABSOLUTE COUNT (BEAKER) (test rssv=597) 0.56 K/ L 0.30-0.82 EOSINOPHILS ABSOLUTE COUNT (BEAKER) (test beqn=553) 0.13 K/ L 0.04-0.54 BASOPHILS ABSOLUTE COUNT (BEAKER) (test ojjy=707) 0.01 K/ L 0.01-0.08 IMMATURE GRANULOCYTES-RELATIVE PERCENT (BEAKER) (test mcjn=4311) 1 % 0-1 BLOOD [id number] 23:00:00* Test Item Value Reference Range Comments CULTURE (BEAKER) (test zvpi=0088) No growth in 5 days BLOOD [id number] 23:00:00* Test Item Value Reference Range Comments CULTURE (BEAKER) (test jovc=4959) No growth in 5 days POCT-GLUCOSE [id number] 08:07:00* Test Item Value Reference Range Comments POC-GLUCOSE METER (BEAKER) (test ixod=3000) 185 mg/dL 70-110 TESTED AT [facility] [address] [facility] [address] BASIC METABOLIC [id number] 07:34:00* Test Item Value Reference Range Comments SODIUM (BEAKER) (test vfvx=458) 138 meq/L 136-145 POTASSIUM (BEAKER) (test nmvt=429) 3.4 meq/L 3.5-5.1 CHLORIDE (BEAKER) (test iyfh=793) 99 meq/L 98-107 CO2 (BEAKER) (test wjqg=853) 29 meq/L 22-29 BLOOD UREA NITROGEN (BEAKER) (test ackq=338) 36 mg/dL 7-21 CREATININE (BEAKER) (test fxqi=540) 5.62 mg/dL 0.57-1.25 GLUCOSE RANDOM (BEAKER) (test jgtd=717) 185 mg/dL 70-105 CALCIUM (BEAKER) (test vpsf=563) 8.8 mg/dL 8.4-10.2 EGFR (BEAKER) (test gzby=6424) 10 mL/min/1.73 sq m ESTIMATED GFR IS NOT ACCURATE CREATININE CLEARANCE IN PREDICTING GLOMERULAR FILTRATION RATE. ESTIMATED GFR IS NOT APPLICABLE FOR DIALYSIS PATIENTS. [id number] 07:16:00* Test Item Value Reference Range Comments MAGNESIUM (BEAKER) (test xvgi=133) 2.1 mg/dL 1.6-2.6 CBC W/PLT COUNT & AUTO [id number] 06:54:00* Test Item Value Reference Range Comments WHITE BLOOD CELL COUNT (BEAKER) (test dnnm=795) 9.7 K/ L 3.5-10.5 RED BLOOD CELL COUNT (BEAKER) (test ysxo=065) 3.59 M/ L 4.63-6.08 HEMOGLOBIN (BEAKER) (test nxmm=371) 10.7 GM/DL 13.7-17.5 HEMATOCRIT (BEAKER) (test uoju=990) 34.2 % 40.1-51.0 MEAN CORPUSCULAR VOLUME (BEAKER) (test qrvq=653) 95.3 fL 79.0-92.2 MEAN CORPUSCULAR HEMOGLOBIN (BEAKER) (test wmmg=961) 29.8 pg 25.7-32.2 MEAN CORPUSCULAR HEMOGLOBIN CONC (BEAKER) (test yrce=150) 31.3 GM/DL 32.3- 36.5 RED CELL DISTRIBUTION WIDTH (BEAKER) (test rnrs=377) 15.0 % 11.6-14.4 PLATELET COUNT (BEAKER) (test xaem=974) 222 K/CU MM 150-450 MEAN PLATELET VOLUME (BEAKER) (test duem=282) 10.3 fL 9.4-12.4 NUCLEATED RED BLOOD CELLS (BEAKER) (test zent=803) 0 /100 WBC 0-0 NEUTROPHILS RELATIVE PERCENT (BEAKER) (test aoyn=999) 88 % LYMPHOCYTES RELATIVE PERCENT (BEAKER) (test ftlu=177) 7 % MONOCYTES RELATIVE PERCENT (BEAKER) (test nstb=925) 4 % EOSINOPHILS RELATIVE PERCENT (BEAKER) (test mfyl=244) 0 % BASOPHILS RELATIVE PERCENT (BEAKER) (test mpch=825) 0 % NEUTROPHILS ABSOLUTE COUNT (BEAKER) (test vphy=871) 8.56 K/ L 1.78-5.38 LYMPHOCYTES ABSOLUTE COUNT (BEAKER) (test bxtl=404) 0.68 K/ L 1.32-3.57 MONOCYTES ABSOLUTE COUNT (BEAKER) (test nubj=906) 0.42 K/ L 0.30-0.82 EOSINOPHILS ABSOLUTE COUNT (BEAKER) (test wdtk=170) 0.00 K/ L 0.04-0.54 BASOPHILS ABSOLUTE COUNT (BEAKER) (test wfag=364) 0.02 K/ L 0.01-0.08 IMMATURE GRANULOCYTES-RELATIVE PERCENT (BEAKER) (test kimz=4997) 0 % 0-1 PROTHROMBIN [id number] 06:46:00* Test Item Value Reference Range Comments PROTIME (BEAKER) (test dymy=680) 26.7 seconds 11.7-14.7 INR (BEAKER) (test pvjk=942) 2.5 <=5.9 RECOMMENDED COUMADIN/WARFARIN INR THERAPY RANGESSTANDARD DOSE: 2.0 - 3.0 Includes: PROPHYLAXIS for venous thrombosis, systemic embolization; TREATMENT for venous thrombosis and/or pulmonary embolus.HIGH RISK: Target INR is 2.5-3.5 for patients with mechanical heart valves.POCT-GLUCOSE [id number] 21:47:00 * Test Item Value Reference Range Comments POC-GLUCOSE METER (BEAKER) (test drpd=1840) 211 mg/dL 70-110 TESTED AT [place] [address] POCT-GLUCOSE [id number] 17:50:00* Test Item Value Reference Range Comments POC-GLUCOSE METER (BEAKER) (test aovr=1173) 212 mg/dL 70-110 TESTED AT [place] [address] URINE [id number] 13:08:00* Test Item Value Reference Range Comments CULTURE (BEAKER) (test aygi=6430) No growth POCT-GLUCOSE [id number] 12:22:00* Test Item Value Reference Range Comments POC-GLUCOSE METER (BEAKER) (test bubt=4243) 149 mg/dL 70-110 TESTED AT [address] [address] CBC W/PLT COUNT & AUTO [id number] 08:49:00* Test Item Value Reference Range Comments WHITE BLOOD CELL COUNT (BEAKER) (test fowk=061) 5.1 K/ L 3.5-10.5 RED BLOOD CELL COUNT (BEAKER) (test fdui=402) 3.56 M/ L 4.63-6.08 HEMOGLOBIN (BEAKER) (test ebwb=144) 10.7 GM/DL 13.7-17.5 HEMATOCRIT (BEAKER) (test mrub=864) 33.8 % 40.1-51.0 MEAN CORPUSCULAR VOLUME (BEAKER) (test fghe=746) 94.9 fL 79.0-92.2 MEAN CORPUSCULAR HEMOGLOBIN (BEAKER) (test celf=987) 30.1 pg 25.7-32.2 MEAN CORPUSCULAR HEMOGLOBIN CONC (BEAKER) (test xveq=898) 31.7 GM/DL 32.3- 36.5 RED CELL DISTRIBUTION WIDTH (BEAKER) (test hoyc=013) 14.7 % 11.6-14.4 PLATELET COUNT (BEAKER) (test rghg=328) 185 K/CU MM 150-450 MEAN PLATELET VOLUME (BEAKER) (test esfi=500) 10.3 fL 9.4-12.4 NUCLEATED RED BLOOD CELLS (BEAKER) (test jpdn=811) 0 /100 WBC 0-0 NEUTROPHILS RELATIVE PERCENT (BEAKER) (test hshh=300) 89 % LYMPHOCYTES RELATIVE PERCENT (BEAKER) (test wjku=358) 7 % MONOCYTES RELATIVE PERCENT (BEAKER) (test vxxv=758) 4 % EOSINOPHILS RELATIVE PERCENT (BEAKER) (test yljx=130) 0 % BASOPHILS RELATIVE PERCENT (BEAKER) (test ojmw=201) 0 % NEUTROPHILS ABSOLUTE COUNT (BEAKER) (test nljh=762) 4.51 K/ L 1.78-5.38 LYMPHOCYTES ABSOLUTE COUNT (BEAKER) (test seyc=086) 0.37 K/ L 1.32-3.57 MONOCYTES ABSOLUTE COUNT (BEAKER) (test ffnz=377) 0.19 K/ L 0.30-0.82 EOSINOPHILS ABSOLUTE COUNT (BEAKER) (test jntu=966) 0.00 K/ L 0.04-0.54 BASOPHILS ABSOLUTE COUNT (BEAKER) (test ilus=138) 0.00 K/ L 0.01-0.08 IMMATURE GRANULOCYTES-RELATIVE PERCENT (BEAKER) (test uzpt=0182) 0 % 0-1 POCT-GLUCOSE [id number] 07:51:00* Test Item Value Reference Range Comments POC-GLUCOSE METER (BEAKER) (test ynqa=4485) 152 mg/dL 70-110 TESTED AT [facility] [address] [place] [address] BASIC METABOLIC [id number] 06:58:00* Test Item Value Reference Range Comments SODIUM (BEAKER) (test jeqz=103) 137 meq/L 136-145 POTASSIUM (BEAKER) (test wxxv=367) 3.8 meq/L 3.5-5.1 CHLORIDE (BEAKER) (test rzma=993) 98 meq/L 98-107 CO2 (BEAKER) (test guuk=458) 24 meq/L 22-29 BLOOD UREA NITROGEN (BEAKER) (test zsih=974) 40 mg/dL 7-21 CREATININE (BEAKER) (test zjer=034) 6.73 mg/dL 0.57-1.25 GLUCOSE RANDOM (BEAKER) (test xoma=621) 152 mg/dL 70-105 CALCIUM (BEAKER) (test uvth=472) 8.7 mg/dL 8.4-10.2 EGFR (BEAKER) (test wxxg=1614) 8 mL/min/1.73 sq m ESTIMATED GFR IS NOT ACCURATE CREATININE CLEARANCE IN PREDICTING GLOMERULAR FILTRATION RATE. ESTIMATED GFR IS NOT APPLICABLE FOR DIALYSIS PATIENTS. [id number] 06:52:00* Test Item Value Reference Range Comments MAGNESIUM (BEAKER) (test sqpf=657) 1.9 mg/dL 1.6-2.6 PROTHROMBIN TIME/[id number] 06:21:00* Test Item Value Reference Range Comments PROTIME (BEAKER) (test cwho=186) 27.4 seconds 11.7-14.7 INR (BEAKER) (test itza=066) 2.5 <=5.9 RECOMMENDED COUMADIN/WARFARIN INR THERAPY RANGESSTANDARD DOSE: 2.0 - 3.0 Includes: PROPHYLAXIS for venous thrombosis, systemic embolization; TREATMENT for venous thrombosis and/or pulmonary embolus.HIGH RISK: Target INR is 2.5-3.5 for patients with mechanical heart valves.HEPATITIS B SURFACE [id number] 22:17:00* Test Item Value Reference Range Comments HEPATITIS B SURFACE ANTIGEN (2) (BEAKER) (test ujio=4493) Nonreactive Nonreactive CBC W/PLT COUNT & AUTO [id number] 06:45:00* Test Item Value Reference Range Comments WHITE BLOOD CELL COUNT (BEAKER) (test ivsp=549) 6.9 K/ L 3.5-10.5 RED BLOOD CELL COUNT (BEAKER) (test xpat=493) 3.38 M/ L 4.63-6.08 HEMOGLOBIN (BEAKER) (test tfmv=158) 10.1 GM/DL 13.7-17.5 HEMATOCRIT (BEAKER) (test burx=023) 32.1 % 40.1-51.0 MEAN CORPUSCULAR VOLUME (BEAKER) (test skig=517) 95.0 fL 79.0-92.2 MEAN CORPUSCULAR HEMOGLOBIN (BEAKER) (test xzaf=316) 29.9 pg 25.7-32.2 MEAN CORPUSCULAR HEMOGLOBIN CONC (BEAKER) (test hygo=545) 31.5 GM/DL 32.3- 36.5 RED CELL DISTRIBUTION WIDTH (BEAKER) (test tnsg=257) 14.6 % 11.6-14.4 PLATELET COUNT (BEAKER) (test llgy=252) 161 K/CU MM 150-450 MEAN PLATELET VOLUME (BEAKER) (test eize=349) 10.1 fL 9.4-12.4 NUCLEATED RED BLOOD CELLS (BEAKER) (test kcwa=209) 0 /100 WBC 0-0 NEUTROPHILS RELATIVE PERCENT (BEAKER) (test ztyc=678) 80 % LYMPHOCYTES RELATIVE PERCENT (BEAKER) (test dbmj=917) 7 % MONOCYTES RELATIVE PERCENT (BEAKER) (test oqau=442) 12 % EOSINOPHILS RELATIVE PERCENT (BEAKER) (test cqcr=082) 1 % BASOPHILS RELATIVE PERCENT (BEAKER) (test cnow=674) 0 % NEUTROPHILS ABSOLUTE COUNT (BEAKER) (test lzyj=196) 5.52 K/ L 1.78-5.38 LYMPHOCYTES ABSOLUTE COUNT (BEAKER) (test natm=953) 0.47 K/ L 1.32-3.57 MONOCYTES ABSOLUTE COUNT (BEAKER) (test susz=753) 0.79 K/ L 0.30-0.82 EOSINOPHILS ABSOLUTE COUNT (BEAKER) (test pzgn=375) 0.07 K/ L 0.04-0.54 BASOPHILS ABSOLUTE COUNT (BEAKER) (test alrj=825) 0.01 K/ L 0.01-0.08 IMMATURE GRANULOCYTES-RELATIVE PERCENT (BEAKER) (test irxe=6955) 0 % 0-1 BASIC METABOLIC [id number] 06:06:00* Test Item Value Reference Range Comments SODIUM (BEAKER) (test ndze=531) 133 meq/L 136-145 POTASSIUM (BEAKER) (test royx=014) 3.4 meq/L 3.5-5.1 CHLORIDE (BEAKER) (test aspd=099) 95 meq/L 98-107 CO2 (BEAKER) (test rsur=893) 23 meq/L 22-29 BLOOD UREA NITROGEN (BEAKER) (test pzud=892) 63 mg/dL 7-21 CREATININE (BEAKER) (test wuxs=834) 9.26 mg/dL 0.57-1.25 GLUCOSE RANDOM (BEAKER) (test uwwf=684) 125 mg/dL 70-105 CALCIUM (BEAKER) (test ikcp=911) 7.8 mg/dL 8.4-10.2 EGFR (BEAKER) (test cjxv=2587) 6 mL/min/1.73 sq m ESTIMATED GFR IS NOT ACCURATE CREATININE CLEARANCE IN PREDICTING GLOMERULAR FILTRATION RATE. ESTIMATED GFR IS NOT APPLICABLE FOR DIALYSIS PATIENTS. PROTHROMBIN TIME/[id number] 05:55:00* Test Item Value Reference Range Comments PROTIME (BEAKER) (test veiq=988) 32.8 seconds 11.7-14.7 INR (BEAKER) (test gwzl=482) 3.2 <=5.9 RECOMMENDED COUMADIN/WARFARIN INR THERAPY RANGESSTANDARD DOSE: 2.0 - 3.0 Includes: PROPHYLAXIS for venous thrombosis, systemic embolization; TREATMENT for venous thrombosis and/or pulmonary embolus.HIGH RISK: Target INR is 2.5-3.5 for patients with mechanical heart valves.[id number] 05:52:00* Test Item Value Reference Range Comments MAGNESIUM (BEAKER) (test kgor=634) 1.9 mg/dL 1.6-2.6 POCT-LACTIC ACID, [id number] 21:56:00* Test Item Value Reference Range Comments POC-LACTIC ACID, VENOUS (BEAKER) (test zewo=9411) 1.4 mmol/L 0.9-1.7 TESTED AT [address] [address] URINALYSIS W/ [id number] 18:53:00* Test Item Value Reference Range Comments COLOR (BEAKER) (test jgdy=549) Brown CLARITY (BEAKER) (test sucy=268) Cloudy SPECIFIC GRAVITY UA (BEAKER) (test royk=231) 1.019 1.001-1.035 PH UA (BEAKER) (test sukn=844) 5.5 5.0-8.0 PROTEIN UA (BEAKER) (test duhb=888) 200 mg/dL Negative GLUCOSE UA (BEAKER) (test ojwv=060) 30 mg/dL Negative KETONES UA (BEAKER) (test mqyk=283) Negative Negative BILIRUBIN UA (BEAKER) (test axkb=972) Negative Negative BLOOD UA (BEAKER) (test rysu=760) Large Negative NITRITE UA (BEAKER) (test hexr=476) Negative Negative LEUKOCYTE ESTERASE UA (BEAKER) (test ibdi=317) Moderate Negative UROBILINOGEN UA (BEAKER) (test divi=251) 0.2 mg/dL 0.2-1.0 RBC UA (BEAKER) (test mhak=874) 466 /HPF WBC UA (BEAKER) (test wwoo=305) 36 /HPF SOURCE(BEAKER) (test wcfy=7824) Urine, Voided POCT-LACTIC ACID, [id number] 18:29:00* Test Item Value Reference Range Comments POC-LACTIC ACID, VENOUS (BEAKER) (test iyrm=7130) 1.6 mmol/L 0.9-1.7 TESTED AT [address] [address] RAPID INFLUENZA A&B [id number] 16:15:00* Test Item Value Reference Range Comments RAPID INFLUENZA A AG (BEAKER) (test rors=5676) Positive Negative, Inconclusive RAPID INFLUENZA B AG (BEAKER) (test ugav=3436) Negative Negative, Inconclusive TROPONIN [id number] 16:10:00* Test Item Value Reference Range Comments TROPONIN I (BEAKER) (test srid=376) 0.23 ng/mL 0.00-0.03 Troponin I (TnI) levels must be interpreted [...] failure, acidosis, acute neurological disease, and persistent tachyarrhythmia.B-TYPE NATRIURETIC FACTOR (BNP) 16:05:00* Test Item Value Reference Range Comments B-TYPE NATRIURETIC PEPTIDE (BEAKER) (test kvyy=407) 2925 pg/mL 0-100 CREATINE KINASE (CK), TOTAL AND [id number] 16:05:00* Test Item Value Reference Range Comments CREATINE KINASE TOTAL (BEAKER) (test rstu=290) 444 U/L 29-200 CREATINE KINASE-MB (BEAKER) (test lyed=001) 6.6 ng/mL 0.0-6.6 CREATINE KINASE-MB INDEX (BEAKER) (test lcgc=883) 1.5 % CK-MB Reference Range:<6.7 Normal6.7-10.0 Borderline>10.0 [id number] 16:03:00* Test Item Value Reference Range Comments MAGNESIUM (BEAKER) (test exjx=452) 1.8 mg/dL 1.6-2.6 BASIC METABOLIC [id number] 16:03:00* Test Item Value Reference Range Comments SODIUM (BEAKER) (test xtzg=165) 135 meq/L 136-145 POTASSIUM (BEAKER) (test ojyq=866) 3.3 meq/L 3.5-5.1 CHLORIDE (BEAKER) (test zqzd=561) 91 meq/L 98-107 CO2 (BEAKER) (test zdqu=207) 30 meq/L 22-29 BLOOD UREA NITROGEN (BEAKER) (test gpis=416) 55 mg/dL 7-21 CREATININE (BEAKER) (test voxy=289) 8.93 mg/dL 0.57-1.25 GLUCOSE RANDOM (BEAKER) (test jnnf=372) 117 mg/dL 70-105 CALCIUM (BEAKER) (test gzcv=767) 8.6 mg/dL 8.4-10.2 EGFR (BEAKER) (test zjdr=9804) 6 mL/min/1.73 sq m ESTIMATED GFR IS NOT ACCURATE CREATININE CLEARANCE IN PREDICTING GLOMERULAR FILTRATION RATE. ESTIMATED GFR IS NOT APPLICABLE FOR DIALYSIS PATIENTS. RAD, CHEST, 2 [id number] 16:03:00Reason for exam:->COUGHReason for exam:-> FEVERFINAL REPORT AP and lateral chest HISTORY: Cough, fever COMPARISON: 02/04/2017 IMPRESSION:Stable cardiac silhouette. Moderate pleural effusions are present. Scarring noted in the lateral left lung. Bibasilar opacities appear to reflect chronic atelectasis. Underlying pneumonia not excluded. No pneumothorax. Signed: Mary Alice [facility] MDReport Verified Date/ Time: 09/10/2017 16:03:57 Reading Location: [facility] Reading Room /[id number] 15:52:00* Test Item Value Reference Range Comments PROTIME (BEAKER) (test jdrs=837) 34.7 seconds 11.7-14.7 INR (BEAKER) (test qpiw=476) 3.4 <=5.9 PARTIAL THROMBOPLASTIN TIME (BEAKER) (test fjrf=649) 65.2 seconds 22.5-36.0 RECOMMENDED COUMADIN/WARFARIN INR THERAPY RANGESSTANDARD DOSE: 2.0 - 3.0 Includes: PROPHYLAXIS for venous thrombosis, systemic embolization; TREATMENT for venous thrombosis and/or pulmonary embolus.HIGH RISK: Target INR is 2.5-3.5 for patients with mechanical heart valves.CBC W/PLT COUNT & AUTO [id number] 15:42:00* Test Item Value Reference Range Comments WHITE BLOOD CELL COUNT (BEAKER) (test kewe=477) 8.7 K/ L 3.5-10.5 RED BLOOD CELL COUNT (BEAKER) (test tzjj=780) 3.38 M/ L 4.63-6.08 HEMOGLOBIN (BEAKER) (test gbsp=044) 10.3 GM/DL 13.7-17.5 HEMATOCRIT (BEAKER) (test wniv=550) 32.4 % 40.1-51.0 MEAN CORPUSCULAR VOLUME (BEAKER) (test skll=263) 95.9 fL 79.0-92.2 MEAN CORPUSCULAR HEMOGLOBIN (BEAKER) (test nffo=411) 30.5 pg 25.7-32.2 MEAN CORPUSCULAR HEMOGLOBIN CONC (BEAKER) (test qgmk=860) 31.8 GM/DL 32.3- 36.5 RED CELL DISTRIBUTION WIDTH (BEAKER) (test uoht=107) 14.6 % 11.6-14.4 PLATELET COUNT (BEAKER) (test csym=429) 189 K/CU MM 150-450 MEAN PLATELET VOLUME (BEAKER) (test frcq=557) 10.4 fL 9.4-12.4 NUCLEATED RED BLOOD CELLS (BEAKER) (test lhff=358) 0 /100 WBC 0-0 NEUTROPHILS RELATIVE PERCENT (BEAKER) (test ypji=248) 79 % LYMPHOCYTES RELATIVE PERCENT (BEAKER) (test qkad=445) 10 % MONOCYTES RELATIVE PERCENT (BEAKER) (test dvcj=277) 9 % EOSINOPHILS RELATIVE PERCENT (BEAKER) (test onyc=076) 1 % BASOPHILS RELATIVE PERCENT (BEAKER) (test hmwm=670) 0 % NEUTROPHILS ABSOLUTE COUNT (BEAKER) (test pcoh=428) 6.85 K/ L 1.78-5.38 LYMPHOCYTES ABSOLUTE COUNT (BEAKER) (test tivw=508) 0.82 K/ L 1.32-3.57 MONOCYTES ABSOLUTE COUNT (BEAKER) (test niyz=898) 0.81 K/ L 0.30-0.82 EOSINOPHILS ABSOLUTE COUNT (BEAKER) (test qsin=858) 0.12 K/ L 0.04-0.54 BASOPHILS ABSOLUTE COUNT (BEAKER) (test snxp=992) 0.01 K/ L 0.01-0.08 IMMATURE GRANULOCYTES-RELATIVE PERCENT (BEAKER) (test whau=4730) 1 % 0-1
[2017-10-28] MEDS ORDERED: COUMADIN2 MG PO (18:08)
[2017-10-28] MEDS ORDERED: AMIODARONE HCL200 MG PO (18:10)
[2017-10-28] MEDS ORDERED: METOPROLOL SUCC25 MG PO (18:12)
[2017-10-28] MEDS ORDERED: FUROSEMIDE40 MG PO (18:14)
[2017-10-28] MEDS ORDERED: LOSARTAN-HCTZ1 EAC2 (18:14)
[2017-10-28] MEDS ORDERED: LEVOTHYROXINE50 MCG PO (18:16)
[2017-10-28] MEDS ORDERED: POTASSIUM CHLORIDE 20 MEQ TAB CR PO ONE (20:30)
--- OUTSIDE RECORDS SUMMARY | 2017-10-28 21:18 | XMS REPORT | Clinical Summary ---
Author Author [facility] Organization [facility] Address Unknown Phone Unavailable Care Team Providers Care Telesales Agent Name Role Phone PCP Unavailable Allergies Active [...] ued Insomnia night as needed for Sleep. [facility] RX 1-60-300 TAKE ONE TABLET BY [...] 16 17 ued Coronary artery disease involving [place] coronary artery of [place] heart without angina pectoris amiodarone (PACERONE) 100 [...] ued Coronary artery disease times daily. involving [place] coronary artery of [place] heart without angina pectoris metoprolol (LOPRESSOR) 25 [...] Wheezing Active Problems Problem Noted Date Sepsis ([facility]) 10/12/2017 Influenza A 09/10/2017 Acquired hypothyroidism 06/26/2017 [...] combined systolic and diastolic congestive heart failure ([facility]) 06/11 Overview: Last EF 40-44% 2014 Diastolic dysfunction as well Paroxysmal atrial fibrillation ([facility]) 12/24/2015 Overview: Dr Silva on coumadin managed by pcp ESRD (end stage renal disease) on dialysis ([facility]) 04/02/2015 Overview: [place] Williamson, Fausto Jauregui / [facility] Hypertension 11/25/2013 Coronary artery disease. I A B P. Delirium. s/p CABG x3 11/21/20142012 Overview: s/p PTCA by Dr Street PAD (peripheral artery disease) ([facility]) Anemia Overview: Secondary to CKD Bilateral carotid artery disease ([facility]) Overview: Dopplers ordered by Dr Silva Diabetes mellitus ([facility]) Overview: accucheks q 7-10 days, around 100-120. [...] Care Team Description 10/28/2017 Telephone Internal Medicine Cristian Ackerman MD Report Fall and CEC (Report Fall and CEC) 10/28/2017 Telephone Internal Medicine Cristian Ackerman MD REPORT INR and BS (REPORT INR and BS 10/28/2017) 10/26/2017 Telephone Internal Medicine Cristian Ackerman MD Results 10/23/2017 Telephone Internal Cristian Blue MD BS READAING 10/22/2017 Orders Only Internal Cristian Blue MD 10/22/2017 Telephone Internal Medicine Cristian Ackerman MD Anticoagulation 10/19/2017 Telephone Internal Medicine Cristian Ackerman MD INR /Rx ( INR result and Rx questions and Fall) 10/12/2017 [facility] Internal Medicine Aries Rod MD Wheezing - [...] Internal Medicine Cristian Ackerman MD INR 09/10/2017 [facility] Internal Medicine DunellenRehan MD Influenza A (Primary - Encounter Ryann Guan MD Dx);Hypoxia;ESRD (end 09/13/2017 Katharine Morris) Richard, stage renal disease) ([facility]);Wheezing 09/10/2017 Office Visit Internal Medicine Cristian Ackerman MD Influenza A (Primary Dx);Wheezing;Chronic anticoagulation;Type 2 diabetes mellitus without complication, without long-term current use of insulin ([facility]);Essential hypertension;ESRD (end stage renal disease) on dialysis;Cough 09/10/2017 Orders Only General Internal Medicine 09/10/2017 Telephone Internal Medicine Cristian Ackerman MD appt 09/09/2017 Telephone Internal Medicine Cristian Ackerman MD Coagulation Disorder 09/02/2017 Orders Only Internal Medicine Cristian Ackerman MD 09/02/2017 Telephone Internal Medicine Cristian Ackerman MD Results ( INR Results) 08/26/2017 Orders Only Internal Medicine Cristian Ackerman MD 07/29/2017 Telephone Internal Cristian Blue MD PT/INR 07/21/2017 Telephone Internal Medicine Cristian Ackerman MD PT/INR 07/13/2017 Telephone Internal Medicine Cristian Ackerman MD Lab results 07/10/2017 Office Visit Internal Medicine Cristian Ackerman MD Open wound of left lower extremity, subsequent encounter (Primary Dx);Chronic anticoagulation 06/26/2017 Office Visit Internal Medicine Cristian Ackerman MD Anemia, unspecified type (Primary Dx);Gastroesophageal reflux disease without esophagitis;Coronary artery disease involving [place] coronary artery of [place] heart without angina pectoris;Essential hypertension;Type 2 diabetes [...] MD Concered about patient 06/04/2017 Telephone Internal Medicine Cristian Ackerman MD 06/05/2017 Appt (Cancel 06/05/2017 ) 05/28/2017 Telephone Internal Medicine Cristian Ackerman MD INR 05/13/2017 Refill Internal Medicine Cristian Ackerman MD Essential hypertension 05/11/2017 Refill Internal Medicine Cristian Ackerman MD Essential hypertension 05/06/2017 Refill Internal Medicine Cristian Ackerman MD Essential hypertension 05/04/2017 Orders Only Internal Medicine Cristian Ackerman MD 04/07/2017 Refill Internal Medicine Cristian Ackerman [...] disease (HCC) (Primary Dx);Coronary artery disease involving [place] coronary artery of [place] heart without angina pectoris;Paroxysmal atrial fibrillation (HCC);Type [...] Due Influenza High Dose 06/11/2015 Preservative Free [id number] Influenza, High Dose 08/25/2014 Seasonal Pneumococcal 08/25/2014 [...] Taken Blood Pressure 141/65 10/16/2017 3:00 PM MOHS SURGEON Pulse 89 10/16/2017 3:19 PM MOHS SURGEON Temperature 35.7 C (96.3 F) 10/16/2017 3:00 PM MOHS SURGEON Respiratory Rate 18 10/16/2017 3:19 PM MOHS SURGEON Oxygen Saturation 96% 10/16/2017 3:19 PM MOHS SURGEON Inhaled Oxygen - - Concentration Weight 72.3 kg (159 lb 6.4 oz) 10/16/2017 5:00 AM MOHS SURGEON Height 175.3 cm (5' 9") 10/12/2017 1:05 PM MOHS SURGEON Body Mass Index 23.54 10/16/2017 5:00 AM MOHS SURGEON Plan of Treatment Health Maintenance Due Date Last Done Comments INFLUENZA VACCINE 06/21/2017 06/11/2015 Procedures Procedure Name Priority Date/Time Associated Diagnosis Comments CRITICAL CARE Routine 09/13/2017 Results for this 9:44 AM MOHS SURGEON procedure are in the results section. after [...] Range POC-Glucose Meter 328 (H)Comment: TESTED AT [address] 70 - 110 mg /dL [facility] [address] Specimen Performing Laboratory Blood [facility] [address] [address] * CBC with platelet count + automated [...] 1 % Granulocytes-Relative Specimen Performing [place] [address] * CBC with platelet count + automated diff (10/16/2017 6:46 AM) Only the most recent of 11 results within the time period is included. Specimen Performing Laboratory Blood Narrative The following orders were created for panel order CBC with platelet count + automated diff. Procedure Abnormality Status --------- - ------ CBC with platelet count ...[[id number]]AbnormalFinal result Please view results for these tests on the individual orders. * Magnesium (10/16/2017 6:46 AM) Only the most recent of 8 results within the time period is included. Component Value Ref Range Magnesium 1.9 1.6 - 2.6 mg/dL Specimen Performing Laboratory Blood [address] [address] * Basic Metabolic Panel (10/16/2017 6:46 AM) [...] DIALYSIS PATIENTS. Specimen Performing Laboratory Blood [facility] [address] [address] * CT chest without IV contrast (10/15/2017 5:42 PM) Specimen Performing Laboratory [facility] RIS Narrative FINAL REPORT CT scan of the [...] MD Report Verified Date/Time:10/15/2017 18:53:51 Reading Location: [facility] C013 Consult Reading Room Procedure Note Interface, External Ris In - 10/15/2017 6:55 PM MOHS SURGEON FINAL REPORT CT scan of the chest. [...] Report Verified Date/Time: 10/15/2017 18:53:51 Reading Location: [facility] Reading [facility] * Hemodialysis (10/15/2017 2:13 [...] Ag Nonreactive Nonreactive Specimen Performing [place] [address] * Potassium (10/13/2017 4:44 PM) Component Value Ref Range Potassium 3.3 (L) 3.5 - 5.1 meq/L Specimen Performing Laboratory Blood - Arm, [place] [address] * Manual Differential (10/13/2017 5:43 AM) Component [...] Normal Specimen Performing Laboratory Blood - Arm, [place] [address] * XR chest 1 view portable / [...] MD Report Verified Date/Time:10/12/2017 22:36:28 Reading Location: [address] Reading Room Procedure Note Interface, External Ris In - 10/12/2017 10:38 PM MOHS SURGEON FINAL REPORT EXAMINATION: AP PORTABLE CHEST RADIOGRAPH [...] summary, no significant interval change. Signed: Jaky Tohmpson MD Report Verified Date/Time: 10/12/2017 22:36:28 Reading Location: [address] Reading Room * Respiratory Panel [facility] (10/12/2017 9:24 PM) Component Value Ref Range [...] Specimen Performing Laboratory Nasopharyngeal - [facility] Nasopharyngeal Swab [address] [place] [address] * Lactic acid, venous, whole blood (10/12/2017 9:24 PM) Component Value Ref Range Lactate, Venous 1.0 0.5 - 2.2 mmol/L Specimen Performing Laboratory Blood - Arm, Right [place] [id number] Narrative Effective 01/23/2016: Units/Reference Range Change New: 0.5-2.2 mmol/LPrevious: 5-20 mg/dL * B-type Natriuretic Factor (BNP) (10/12/2017 9:24 PM) Only the most recent of 2 results within the time period is included. Component Value Ref Range BNP 1342 (H) 0 - 100 pg/mL Specimen Performing Laboratory Blood - Arm, Right [facility] [address] [address] * POCT Protime-INR Fingerstick (10/12/2017 3:47 PM) [...] MD Report Verified Date/Time:09/22/2017 15:14:56 Reading Location: [facility] Radiology Reading Room Procedure Note Interface, External Ris In - 09/22/2017 3:17 PM MOHS SURGEON FINAL REPORT CT Head without contrast CLINICAL [...] Report Verified Date/Time: 09/22/2017 15:14:56 Reading Location: [facility] Radiology Reading Room * PT/aPTT (09/22/2017 2:54 PM) Only the most recent of 2 results within the time period is included. Component Value Ref Range Protime 23.0 (H) 11.7 - 14.7 seconds INR 2.0 <=5.9 PTT 33.8 22.5 - 36.0 seconds Specimen Performing Laboratory Blood - Arm, [place] [address] Narrative RECOMMENDED COUMADIN/WARFARIN INR THERAPY RANGES STANDARD [...] normal. ST segments normal. T waves normal. [place] is normal. Q-waves are present in lead(s) [...] Ref Range Ejection Fraction Specimen Performing Laboratory [facility] Narrative Transthoracic Echocardiography Report (TTE) Demographics Patient Name Debo BENITEZ of Study 09/11/2017 CECE [id number] Male Visit Number [id number] Unknown [id number] Room Number 918 Number Date of Birth4Referring Physician Yenifer Webster Age61 year(s)Producer Arborist Manager Danielle Abrams [facility] Interpreting Gabriel Burrell MD Physician Fellow [...] External Ris In - 09/11/2017 4:26 PM MOHS SURGEON Transthoracic Echocardiography Report (TTE) Demographics Patient Name GREGORIO BENITEZ Date of Study 09/11/2017 CECE Gender Male Visit Number [id number] Race Unknown Room Number 918 Number Date of 1955 Referring Physician Yenifer Webster Age 61 year(s) Producer Arborist Manager Danielle Abrams RDCS Interpreting Gabriel Burrell MD [...] Range POC-Lactic Acid, Venous 1.4Comment: TESTED AT [address] 0.9 - 1.7 mmol/[place] [address] Specimen Performing [place] [address] * Urinalysis w/ Microscopic (09/10/2017 5:37 PM) Component Value Ref Range Color, UA Brown Clarity, UA Cloudy Specific [employer], UA 1.019 1.001 - 1.035 pH, UA [...] Specimen Performing Laboratory Urine - Urine, [place] [address] * Urine culture (09/10/2017 5:37 PM) Component Value Ref Range Result No growth Specimen Performing Laboratory Urine - Urine, [place] [address] * Blood culture #2 (09/10/2017 5:09 PM) Only the most recent of 2 results within the time period is included. Component Value Ref Range Result No growth in 5 days Specimen Performing Laboratory Blood - Line, [place] [address] * XR chest 2 views (09/10/2017 4:01 [...] MD Report Verified Date/Time:09/10/2017 16:03:57 Reading Location: [facility] Reading Room Procedure Note Interface, External Ris In - 09/10/2017 4:06 PM MOHS SURGEON FINAL REPORT AP and lateral chest HISTORY: Cough, fever COMPARISON: 02/04/2017 IMPRESSION: Stable cardiac silhouette. Moderate pleural effusions are present. Scarring noted in the lateral left lung. Bibasilar opacities appear to reflect chronic atelectasis. Underlying pneumonia not excluded. No pneumothorax. Signed: Mary Alice Ford MD Report Verified Date/Time: 09/10/2017 16:03:57 Reading Location: [facility] Reading Room * Rapid Influenza A&B Screen (09/10/2017 3:31 PM) Component Value Ref Range Rapid Influenza A Antigen Positive (A) Negative, Inconclusive Rapid influenza B Antigen Negative Negative, Inconclusive Specimen Performing Laboratory Nasal - Nasopharyngeal [facility] Swab [address] [place] [address] * ECG 12 lead (09/10/2017 3:28 PM) Specimen Performing Laboratory [facility] Narrative Ventricular Rate 76 BPM Atrial Rate 76 BPM P-R Interval 154 ms QRS Duration 90 ms Q-T Interval 426 ms QTC Calculation(Bazett) 479 ms P Chariton 66 degrees R Chariton 0 degrees T Char[place] 25 degrees Normal sinus rhythm Possible Inferior wall infarct Poor R wave progression Borderline ECG When compared with ECG of 03-APR-2015 17:46, T wave inversion no longer evident in Lateral leads Confirmed by Jacques SEGAL, LUISA ([id number]) on 09/11/2017 8:41:20 AM Procedure Note Interface, External Ris In - 09/11/2017 8:41 AM MOHS SURGEON Ventricular Rate 76 BPM Atrial Rate 76 BPM P-R Interval 154 ms QRS Duration 90 ms Q-T Interval 426 ms QTC Calculation(Bazett) 479 ms P Char[place] 66 degrees R Char[place] 0 degrees T [place] 25 degrees Normal sinus rhythm Possible Inferior [...] ng/mL Specimen Performing Laboratory Blood - Arm, [place] [address] Narrative Troponin I (TnI) levels must be [...] % Specimen Performing Laboratory Blood - Arm, [place] [address] Narrative CK-MB Reference Range: <6.7Normal 6.7-10.0Borderline >10.0 [...] Laboratory Blood [facility] Narrative Performed at:01 - [id number] Sorority Supervisor: Charles Gómez MD, Phone:[phone] * T4, free (09/02/2017 1:42 PM) Component Value Ref Range T4,Free(Direct) 1.50 0.82 - 1.77 ng/dL Thyroxine (T4) 8.4 4.5 - 12.0 ug/dL Specimen Performing Laboratory Blood [facility] Narrative Performed at:[address] [place], [place] [id number] Sorority Supervisor: Charles Gómez MD, Phone:[phone] * Hemoglobin A1c (06/26/2017 11:19 AM) Only the most recent of 2 results within the time period is included. Component Value Ref Range Hemoglobin A1c 6.4 (H) 4.8 - 5.6 % Comment: Pre-diabetes: 5.7 - 6.4 Diabetes: >6.4 Glycemic control for adults with diabetes: <7.0 Specimen Performing Laboratory Blood [facility] Narrative Performed at:[address] [place], [place] [id number] Sorority Supervisor: Charles Gómez MD, Phone:[phone] * Lipid panel (06/26/2017 11:19 AM) Only [...] Specimen Performing Laboratory Blood [facility] Narrative Performed at:[address] [place], [place] [id number] Sorority Supervisor: Charles Gómez MD, Phone:[phone] * Comprehensive metabolic panel (06/26/2017 11:19 AM) [...] Specimen Performing Laboratory Blood [facility] Narrative Performed at:[address] [place], [place] [id number] Sorority Supervisor: Charles Gómez MD, Phone:[phone] * T4F (02/04/2017 10:55 AM) Component Value Ref Range T4,Free (Direct) 1.55 0.82 - 1.77 ng/dL Specimen Performing Laboratory [facility] Narrative Performed at:[address] [place], [place] [id number] Sorority Supervisor: Charles Gómez MD, Phone:[phone] * TSH/Free T4 If Indicated (02/04/2017 10:55 AM) Component Value Ref Range TSH 6.280 (H) 0.450 - 4.50 uIU/mL Specimen Performing Laboratory Blood [facility] Narrative Performed at:[address] [place], [place] [id number] Sorority Supervisor: Charles Gómez MD, Phone:[phone] after 10/27/2016
--- OUTSIDE RECORDS SUMMARY | 2017-10-28 21:19 | XMS REPORT | Continuity of Care Document ---
Author Author [facility] Organization [facility] Address [address] [place] [address] Phone Unavailable Care Team Providers Care Hairspring Ii Inspector Name Role Phone NONSTAFF PCP Unavailable Insurance Providers Guarantor Gregorio Benitez Address [address] [place] [address] Payer Medicare A & B Policy Number [id number] Subscriber's Name Gregorio Benitez Relationship 18 Self / Same As [facility] Policy Number [id number] Subscriber's Name Gregorio Benitez Relationship 18 Self / Same As Patient Advance Directives Directive Response Recorded Date/Time Does the patient have an advance directive? No 10/28/17 4:50pm Do you have a Directive to Physician? No 10/28/17 4:50pm Do you have a Medical Power of Agricultural Services Director? Yes 10/28/17 4:50pm Do you have an out of hospital Do Not Resuscitate Order? No 10/28/17 4:50pm Do you have any special needs we should be aware of? No 10/28/17 4:50pm Do you have a support person here with you today? Yes 10/28/17 4:50pm Did patient receive Notice of Privacy Practices? Yes 10/28/17 4:50pm Did patient receive patient rights and responsibilities? Yes 10/28/17 4:50pm Problems No problem information available. Medications Current Home Medications Medication Dose Units Route Directions Days Qty Instructions Start Date Amiodarone Hcl 200 Mg Tablet Furosemide 40 Mg Tablet 40 Mg Oral Twice A Day 30 Tab Levothyroxine Sodium 50 Mcg Tablet 12.5 Mcg Oral Daily 30 Tab Losartan/Hydrochlorothiazide (Losartan-Hctz 100-12.5 Mg Tab) 1 Each Tablet 25 3 Times Per Week Metoprolol Succinate 25 Mg Tab.er.24h 12.5 Warfarin Sodium (Coumadin) 2 Mg Tablet 2 Mg Oral Today At 5:00PM 7 Tab Social History Smoking Status Start Date Stop Date Never Smoker Hospital Discharge Instructions No hospital discharge instruction information available. Plan of Care Discharge Date 10/28/17 9:06pm Disposition ADMITTED Condition at Discharge Stable Forms Provided Work/School Excuse Prescriptions See Medication Section Functional Status No functional status information available. Allergies, Adverse Reactions, Alerts Allergen Type Severity Reaction Status Last Updated Sulfa (Sulfonamide Antibiotics) Allergy Severe SHORTNESS OF BREATH Active 10/28/17 Lisinopril Allergy Mild cough Active 10/28/17 Metformin Allergy Severe weak Active 10/28/17 Immunizations No immunization information available. Vital Signs Acute Vital Signs Vital Response Date/Time Temperature (Fahrenheit) 98.0 degrees F (97.6 - 99.5) 10/28/2017 9:04pm Pulse Pulse Rate (adult) 72 bpm (60 - 90) 10/28/2017 9:04pm Respiratory Rate 16 bpm (12 - 24) 10/28/2017 9:04pm Blood Pressure 182/86 mm Hg 10/28/2017 9:04pm Height 5 ft 9 in 10/28/2017 4:17pm Weight 162 lb 10/28/2017 4:17pm Body Mass Index 23.9 kg/m^2 10/28/2017 4:17pm Results No relevant diagnostic test, laboratory data and/or discharge summary information available. Procedures No procedure information available. Encounters Encounter Location Arrival/Admit Date Discharge/Depart Date Attending Provider Departed Emergency Room [facility] 10/28/17 4:01pm 9:06pm RADHA BEAULIEU MD
[2017-10-28 21:56] VITALS: BP 173/74
[2017-10-28] MEDS ORDERED: HYDRALAZINE HCL 20 MG/ML VIAL IV PRN (22:00)
[2017-10-28 22:18] VITALS: BP 173/74
[2017-10-28 22:58] LABS: MAGNESIUM 1.7 MG/DL (1.3-2.1); PHOSPHORUS 1.3 MG/DL (2.3-4.7)
[2017-10-28 22:58] LABS: ANION GAP 15.9 mmol/L (8-16); CALCIUM 7.9 mg/dL (8.4-10.2); CREATININE, SERUM 4.74 mg/dL (0.72-1.25)
[2017-10-28 23:09] LABS: POTASSIUM 2.9 mmol/L (3.5-5.1)
[2017-10-28] MEDS: LOSARTAN POTASSIUM 25 MG TAB PO SCH (23:53)
[2017-10-29] VITALS (9 sets, daily range): BP systolic 153–190; BP diastolic 67–81
[2017-10-29 06:21] LABS: BASOPHILS % 0.1 % (0.0-1.0); EOSINOPHILS % 0.3 % (0.0-6.0); HEMATOCRIT 26.8 % (38.2-49.6); LYMPHOCYTES # (AUTO) 0.8 (1.0-3.2); LYMPHOCYTES % 10.6 % (18.0-39.1); MEAN CORPUSCULAR HEMOGLOBIN 31.3 pg (28-32); MEAN CORPUSCULAR HGB CONC 33.6 g/dL (31-35); MEAN CORPUSCULAR VOLUME 93.1 fL (81-99); MONOCYTES # (AUTO) 0.4 (0.2-0.8); MONOCYTES % 4.9 % (4.4-11.3); NEUTROPHILS # (AUTO) 6.6 (2.1-6.9); NEUTROPHILS % 83.1 % (38.7-80.0); PLATELET COUNT 93 x10e3/uL (140-360); RED BLOOD COUNT 2.88 x10e6/uL (4.3-5.7); RED CELL DISTRIBUTION WIDTH 15.5 % (11.7-14.4)
[2017-10-29 06:32] LABS: INR 1.65; PROTHROMBIN TIME 20.4 seconds (11.9-14.5)
[2017-10-29 06:36] LABS: ANION GAP 14.2 mmol/L (8-16); CALCIUM 7.6 mg/dL (8.4-10.2); CREATININE, SERUM 5.09 mg/dL (0.72-1.25); MAGNESIUM 1.4 MG/DL (1.3-2.1); PHOSPHORUS 1.6 MG/DL (2.3-4.7); POTASSIUM 3.2 mmol/L (3.5-5.1)
[2017-10-29] MEDS: LEVOTHYROXINE SODIUM 25 MCG TABLET PO SCH (08:12)
[2017-10-29] MEDS: AMIODARONE HCL 200 MG TAB PO SCH (08:24)
[2017-10-29] MEDS: LOSARTAN POTASSIUM 25 MG TAB PO SCH (08:47)
[2017-10-29] MEDS: METOPROLOL SUCCINATE 25 MG TAB XL PO SCH (08:48)
[2017-10-29] MEDS ORDERED: FAMOTIDINE 20 MG TAB PO ONE (09:00)
[2017-10-29] MEDS ORDERED: LEVOTHYROXINE SODIUM 50 MCG TAB PO SCH (09:00)
[2017-10-29] MEDS ORDERED: PHOSPHORUS 250 MG TAB PO ONE (15:30)
[2017-10-29] MEDS ORDERED: DEXTROSE 50% SYRINGE 50 ML IV PRN (15:30)
[2017-10-29] MEDS ORDERED: MAGNESIUM SULFATE 2GM/50ML 50 ML IV ONE (15:30)
--- NOTE | 2017-10-29 16:03 | Consultation ---
DATE OF CONSULTATION: October 29, 2017 Mr. Alexander is known to our nephrology service. He is a pleasant 61-year-old gentleman with type-2 diabetes and end-organ damage. Underlying history of hypertension, hypothyroidism, secondary hyperparathyroidism, anemia of chronic kidney disease, congestive heart failure. Renal has been consulted for management of underlying kidney failure. He is currently lying supine. Scheduled for dialysis today. No apparent distress. White count 7.9, hemoglobin 9. Potassium 3.2. Bicarbonate 28. Creatinine 5 with a phosphorus 1.6 and a magnesium 1.4. SOCIAL HISTORY: Patient does not smoke or drink. . Has a very supportive . FAMILY HISTORY: Significant for diabetes. PHYSICAL EXAMINATION GENERAL: Awake, alert, oriented times 3, in no apparent distress lying supine in bed. VITALS: Blood pressure 188/85. Pulse rate 90. Afebrile. HEAD AND NECK: Corneas clear. Oral mucosa dry. LUNGS: Bibasilar rales, right more than left. HEART: S1, S2 audible. ABDOMEN: Otherwise soft and nontender. LOWER EXTREMITIES: No edema. Labs show hypokalemia, hypomagnesemia, hypophosphatemia, end-stage renal disease, evidence of fluid overload. Blood pressure elevated likely due to excess water. states the patient's blood pressure usually drops towards the end of dialysis. Hold blood pressure medications on dialysis days. Plan to replace magnesium and phosphorus. Will dialyze against an appropriate potassium bath. Will place on a renal diet and protein supplementation. Will resume phosphorus binders. Job#: [id number]
[2017-10-29] MEDS ORDERED: SODIUM CHLORIDE 0.9% 250ML 250 ML ONE (16:10)
[2017-10-29] MEDS ORDERED: WARFARIN SOD 2 MG TAB PO SCH (17:00)
[2017-10-29] MEDS: INSULIN REGULAR, HUMAN 100 UNIT/1 ML 3ML VIAL SQ SCH ×2 (17:55→20:57)
--- NOTE | 2017-10-29 18:18 | Diagnostic Imaging Report ---
History: Transient ischemic attack Comparison studies: None Technique: Sagittal T2; axial DWI, FLAIR, GRE, T2, T1, Coronal FLAIR. Intravenous contrast: None Findings: Scalp: Normal in signal . No masses . Bone marrow: Normal in signal intensity. Brain sulci: Mildly prominent. Ventricles: Mild compensated dilatation due to volume loss. No hydrocephalus . Parenchyma: The DWI and ADC sequences are limited due to patient motion and artifact. Within limitations, no acute infarct is identified. Nonspecific few, scattered supratentorial white matter T2/FLAIR hyperintense foci are likely related to small vessel ischemic changes. 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 No masses, hemorrhage, acute or chronic cortical vascular insults. Suprasellar region: No abnormalities. Craniocervical junction: Patent foramen magnum. No Chiari malformation . Vessels: Normal flow-voids in the arteries and sinuses. IMPRESSION: Exam is limited by patient motion and technique. 1. No acute infarct, intracranial hemorrhage, or mass effect. 2. Mild generalized volume loss and chronic small vessel ischemic changes in the supratentorial white matter Preliminary report was given by neuroradiology fellow Dr. Espinoza at 6:17 PM on 10/29/2017. I have reviewed the images and agree with the findings in the preliminary report. Signed by: Dr. Heather Nix M.D. on 10/29/2017 8:15 PM
[2017-10-29] MEDS ORDERED: SODIUM CHLORIDE 0.9% 50ML 100 ML ONE (19:35)
[2017-10-29] MEDS ORDERED: IOPAMIDOL 370 MG/ML 200 ML INFUS..BTL INJ ONE (19:35)
--- NOTE | 2017-10-29 21:02 | History and Physical ---
PRIMARY CARE PROVIDER: Is not on staff. CHIEF COMPLAINT: Altered mental status. HISTORY OF PRESENT ILLNESS: Mr. Alexander is a 61-year-old gentleman who was on his way out to eat with his family. His legs got weak, and he fell getting out of the car. He seemed to be okay after that, went into the restaurant to eat, and his stated that he was not acting right, was repeating himself and asking questions that he already knew the answer to; so, they decided to bring him to the emergency room for evaluation. He seems pretty much back to baseline at this time. REVIEW OF SYSTEMS: He denies fever, chills or weight loss. He denies sinus congestion or sore throat. He denies chest pain or palpitations. He does have a history of paroxysmal AFib. He denies shortness of breath, wheezing or cough. He denies abdominal pain, nausea, vomiting or melena. He denies dysuria or flank pain. He denies rash or pruritus. He denies joint pain or swelling. He denies headache or vertigo. He did have an unexplained loss of consciousness. He denies depression, agitation, homicidal or suicidal ideation. PAST MEDICAL HISTORY: Significant for longstanding hypertension and type 2 diabetes. His diabetes is currently diet controlled as he is on dialysis. He has coronary artery disease and end-stage renal disease on hemodialysis for the last 3 or 4 years. He has a history of a coronary stent done in 2012 followed by coronary artery bypass surgery done in 2013, and he had an AV fistula placed in the left arm in 2013 and had an angioplasty done in 2014. His current medications include: Lasix 40 mg twice daily. Losartan/hydrochlorothiazide 100/12.5 daily. Amiodarone 200 mg daily. Levothyroxine 12.5 mcg daily. Metoprolol ER 25 mg daily. Warfarin 2 mg daily with dinner. ALLERGIES: HE HAS STATED ALLERGIES TO METFORMIN, LISINOPRIL AND SULFA DRUGS, AND HE HAS NEVER SMOKED. FAMILY HISTORY: Remarkable for hypertension, diabetes and some heart disease. SOCIAL HISTORY: The patient is . Mongolian is his primary language. He does not smoke, drink or use illegal drugs, and he is generally independently functioning. PHYSICAL EXAM: PSYCHIATRIC: He is alert and oriented times 3 with normal mood and affect. CONSTITUTIONAL: He has a normal body habitus. Is in no acute distress. VITAL SIGNS: Blood pressure is 188/78. It was actually 130/63 on admission. His heart rate is 75 and regular, was 76 on admission. Respiratory rate is 16, and his O2 sat is 95% on room air. Temperature is 96.8. He was afebrile on admission. HEENT: His head is atraumatic. His eyes are anicteric with clear conjunctivae. Ears and nares are without erythema or discharge. Oropharynx is clear. NECK: Supple with no mass or thyromegaly. LYMPHATIC SYSTEM: He has no palpable cervical, axillary or inguinal adenopathy. CARDIOVASCULAR SYSTEM: His heart has a regular rate and rhythm without murmur or extra heart sound. He has no carotid bruit. He has no peripheral edema. He has weak dorsal pedal pulses. RESPIRATORY: Lungs are clear to auscultation and percussion with normal respiratory effort. GASTROINTESTINAL: His abdomen is soft without organomegaly, masses or tenderness. He has normal bowel sounds present. CUTANEOUS: His skin is warm and dry to the touch with no rash or skin breakdown. MUSCULOSKELETAL: His joints are in normal alignment without erythema or swelling. He has no calf tenderness. NEUROLOGIC: Exam is nonfocal with intact cranial nerves and no motor or sensory deficits. He does have some generalized weakness in bilateral lower extremities. DIAGNOSTIC STUDIES: Chest x-ray done at the outside ER showed no acute disease. CT scan of the brain done at the outside ER showed no acute disease but did show some chronic microvascular changes and ischemic changes in the deep white matter. He had a carotid Doppler that showed narrowing at the left carotid bulb. His echo was normal with ejection fraction of 60% to 65%. His chemistry profile shows a potassium of 2.9. The rest of his electrolytes are normal. CO2 28. Creatinine 4.74, BUN 36 for a GFR of 13. Glucose 284. Calcium 7.9. His CBC shows a white count of 7.90 with 83% neutrophils. Hemoglobin 9.0, hematocrit 26.8 and platelet count 93,000. IMPRESSION AND PLAN: 1. Transient ischemic attack. The patient appears to be back to baseline now. He does have some chronic microvascular changes on CT scan. Will get an MRI scan to see if he has had any new changes. 2. Left carotid narrowing by carotid Doppler. The patient will get a CT angiogram of the neck before his next dialysis treatment to evaluate whether that may have contributed to his syncopal event. 3. Syncope as part of the TIA. 4. End-stage renal disease. Nephrology has been consulted for hemodialysis. 5. Hypertension with coronary disease status post coronary artery bypass graft and end-stage renal disease on hemodialysis. Will continue metoprolol and losartan as well as p.r.n. IV hydralazine. 6. Type 2 diabetes that is diet controlled normally. His blood sugars have been a little bit elevated lately because he has been on low-dose prednisone, not sure exactly why. Will continue on the diabetic diet and will add sliding-scale insulin as necessary. 7. Chronic atrial fibrillation, appears paroxysmal in nature. Currently in sinus rhythm. Will continue amiodarone, metoprolol and Xarelto. 8. For prophylaxis, the patient is on Xarelto for DVT and stroke prophylaxis and Pepcid for GI prophylaxis. Job#: [id number] EV
[2017-10-29] MEDS ORDERED: SODIUM CHLORIDE 0.9% 1000ML 2,000 ML ONE (23:43)
[2017-10-29] MEDS ORDERED: COUMADIN3 MG PO (23:56)
[2017-10-29] MEDS ORDERED: CALCIUM ACETAT667 M1 PO (23:59)
[2017-10-30] VITALS (10 sets, daily range): BP systolic 96–141; BP diastolic 45–71
[2017-10-30] MEDS ORDERED: ATORVASTATIN CA20 MG PO (00:04)
[2017-10-30] MEDS ORDERED: COZAAR25 MG PO (00:04)
[2017-10-30] MEDS ORDERED: DYMISTA NASAL S23 GM (00:04)
[2017-10-30] MEDS ORDERED: TESSALON PERLE100 MG PO (00:08)
[2017-10-30] MEDS ORDERED: CLONIDINE HCL0.1 MG PO (00:08)
[2017-10-30] MEDS: LEVOTHYROXINE SODIUM 25 MCG TABLET PO SCH (06:06)
[2017-10-30 06:12] LABS: BASOPHILS % 0.1 % (0.0-1.0); EOSINOPHILS # (AUTO) 0.1 (0.0-0.4); EOSINOPHILS % 0.5 % (0.0-6.0); HEMATOCRIT 30.4 % (38.2-49.6); HEMOGLOBIN 9.7 g/dL (14.0-18.0); LYMPHOCYTES # (AUTO) 0.8 (1.0-3.2); LYMPHOCYTES % 8.8 % (18.0-39.1); MEAN CORPUSCULAR HEMOGLOBIN 30.4 pg (28-32); MEAN CORPUSCULAR HGB CONC 31.9 g/dL (31-35); MEAN CORPUSCULAR VOLUME 95.3 fL (81-99); MONOCYTES # (AUTO) 0.5 (0.2-0.8); MONOCYTES % 5.2 % (4.4-11.3); NEUTROPHILS # (AUTO) 7.9 (2.1-6.9); NEUTROPHILS % 84.3 % (38.7-80.0); PLATELET COUNT 93 x10e3/uL (140-360); RED BLOOD COUNT 3.19 x10e6/uL (4.3-5.7); RED CELL DISTRIBUTION WIDTH 15.8 % (11.7-14.4)
[2017-10-30 06:41] LABS: CALCIUM 7.6 mg/dL (8.4-10.2); CHOL/HDL RATIO 3.7 (3.9-4.7); CREATININE, SERUM 3.12 mg/dL (0.72-1.25); MAGNESIUM 1.8 MG/DL (1.3-2.1); PHOSPHORUS 1.5 MG/DL (2.3-4.7)
[2017-10-30] MEDS ORDERED: SODIUM CHLORIDE 0.9% 250ML 500 ML IV PRN ×2 (06:45→08:15)
[2017-10-30] MEDS ORDERED: ALBUMIN HUMAN 12.5GM / 50ML IV PRN ×2 (06:45→08:15)
[2017-10-30] MEDS ORDERED: MANNITOL 25% 12.5GM/50 ML VIAL IV PRN ×2 (06:45→08:15)
[2017-10-30] MEDS ORDERED: SODIUM CHLORIDE 0.9% 1000ML 2,000 ML IV PRN ×2 (06:45→08:15)
[2017-10-30 07:02] LABS: FREE T4 (FREE THYROXINE) 1.25 ng/dL (0.9-1.8); THYROID STIMULATING HORMONE 2.992 uIU/mL (0.350-4.940)
[2017-10-30] MEDS: INSULIN REGULAR, HUMAN 100 UNIT/1 ML 3ML VIAL SQ SCH ×4 (07:30→21:00)
[2017-10-30] MEDS ORDERED: HEPARIN SOD (PORCINE) 1000 UNIT/ML SDV IV PRN ×2 (08:15→20:00)
--- NOTE | 2017-10-30 08:35 | Diagnostic Imaging Report ---
Exam: Cervical CTA History: Left carotid narrowing. Comparison studies:Carotid ultrasound 10/29/2017. Technique: Axial images were obtained from the thoracic inlet. Coronal and sagittal images reconstructed from the axial data. Additional multiplanar reformatted images with moderate mid stenosis calculations were performed on a separate workstation by the radiologist. Intravenous contrast: 100 cc of Omnipaque 300. If present, stenosis is calculated utilizing the NASCET method which calculates the degree of stenosis with reference to the normal lumen of the carotid artery distal to the stenosis. Findings: Aortic arch and major vessels: Mild scattered hard and soft plaque within the arch. Nonstenotic calcified plaque in the proximal left subclavian artery. Common origin of the left common carotid artery and right brachycephalic trunk which are patent without stenosis. Right carotid artery: Patent, no stenosis in the common carotid artery. Mild nonstenotic calcified plaque at the proximal bulb. Moderate hard and soft plaque in the distal bulb which extend along a 2.7 cm segment from the distal bulb into the proximal right ICA segment and result in approximately 40% stenosis approximately 2.0 cm from the carotid bifurcation. No tandem stenoses in the right cervical ICA. Mild nonstenotic atherosclerosis in the right cavernous and intracranial paraophthalmic segments. Left carotid artery: No stenosis in the common carotid artery. Severe hard and soft plaque extend for a 3.0 cm from the bulb to the proximal proximal left ICA where there is approximately 85-90% stenosis in the proximal left ICA approximately 2.0 cm distal to the cervical carotid bifurcation. No tendon stenoses distally within the left ICA. Nonstenotic calcified atherosclerosis in the left cavernous and ICA segment. Vertebral arteries: Patent bilaterally. Mild nonstenotic hard plaque at the origin on the left. Left vertebral artery is dominant. Additional findings: Patent stent within the left brachiocephalic vein with moderate short segment in-stent stenosis approximately 5.0 cm from the brachiocephalic-caval junction. Incidental findings: Small right pleural effusion with small fluid or thickening along the major fissures bilaterally. Degenerative changes in the cervical spine with mild multilevel disc degeneration, facet arthrosis and foraminal stenosis. IMPRESSION: 1. Severe hard and soft plaque at the left carotid bulb/proximal ICA segment result in high-grade stenosis in the range of 85-90%. 2. Moderate hard and soft plaque in the distal right carotid bulb and proximal ICA results in up to approximately 40% stenosis. 3. Patent, no stenosis in the vertebral arteries. 4. Patent left brachiocephalic venous stent with moderate short segment in-stent stenosis. Signed by: Dr. Jean Carlos Slater M.D. on 10/30/2017 8:32 AM
[2017-10-30] MEDS: METOPROLOL SUCCINATE 25 MG TAB XL PO SCH (09:00)
[2017-10-30] MEDS: LOSARTAN POTASSIUM 25 MG TAB PO SCH (09:00)
[2017-10-30] MEDS: AMIODARONE HCL 200 MG TAB PO SCH (09:39)
[2017-10-30] MEDS ORDERED: HEPARIN SOD (PORCINE) 5,000 UNIT/ML VIAL IV ONE ×2 (16:30→20:00)
[2017-10-30] MEDS ORDERED: HEPARIN 25,000U/0.45% NS 250ML 900 UNIT in SODIUM CHLORIDE 0.9% 250ML 0 ML IV SCH ×2 (16:30→20:00)
[2017-10-30] MEDS ORDERED: ASPIRIN 325 MG TAB PO ONE (16:30)
--- NOTE | 2017-10-30 17:19 | Consultation ---
DATE OF CONSULTATION: October 30, 2017 CARDIOLOGY CONSULTATION REASON FOR CONSULTATION: Carotid disease. HISTORY OF PRESENT ILLNESS: Mr. Alexander is a pleasant 61-year-old man with history of end-stage renal disease, hypertension, paroxysmal atrial fibrillation, hypothyroidism, coronary artery disease status post aortocoronary bypass, and followed by Dr. Street in [facility]. He presents to [facility] with complaints of sudden onset weakness after attempting to get out of his car while going out to eat with his family. He describes an episode of slurred speech and right upper extremity weakness where his fork kept falling from his hand afterward. Those symptoms have resolved since. He denies any chest pain or shortness of breath. He was noted to have hypokalemia, electrolyte derangements on initial admission. MRI has been remarkable for movement artefact with chronic microvascular changes, but no evidence of acute CVA or bleeding. His carotid Doppler is significant for severe left internal carotid artery stenosis. His INR is subtherapeutic. He is currently being set up to initiate hemodialysis. Patient and family are requesting initiation of transfer to [facility] under the care of Dr. Street. Dr. Street's nurse practitioner and myself have had a conversation regarding his current status. I discussed with primary team my recommendations and coordinated care. TWELVE-SYSTEM REVIEW: Negative except for as noted above. PAST MEDICAL HISTORY: As per HPI. SOCIAL HISTORY: No smoking, alcohol or drugs. FAMILY HISTORY: Significant for hypertension, diabetes, and heart disease. PHYSICAL EXAMINATION VITAL SIGNS: Temperature 97.5, heart rate 85, respiratory rate 20, blood pressure 130/61, O2 sat 98% on room air. GENERAL: No acute distress. Alert, active. NECK: No JVD. CHEST: Clear to auscultation. CARDIOVASCULAR: Regular rate and rhythm. Normal S1 and S2. No S3, no S4. Left carotid bruit. ABDOMEN: Soft. EXTREMITIES: No edema. STUDIES: Echocardiogram with left ventricular ejection fraction of 60% to 65%, moderate concentric left ventricular hypertrophy. Trace tricuspid regurgitation. RVSP less than 35 mmHg. Telemetry: Currently in sinus rhythm. Carotid ultrasound significant for 80% to 99% stenosis of the left internal carotid artery with peak velocity 383/66. There are also elevated velocities in the right internal carotid artery and the left subclavian artery. Vertebrals are antegrade patent. Plaque without hemodynamically significant stenosis to the right internal carotid artery. LAB WORK: White blood cells 9.3, hemoglobin 9.7, platelets 93, INR 1.6, creatinine 3.12. Potassium 3; initial potassium was 2.9. Magnesium 1.8. LDL is 48, HDL is 29, TSH 2.9. Glucose 239. Hemoglobin A1c 7.7. CTA with severe hard and soft plaque of the left carotid bulb and proximal ICA, secondarily resulting in high-grade stenosis, range of 89% to 90%. Moderate hard and soft plaque in the distal right carotid bulb and proximal ICA, resulting 40% stenosis. Patent to no stenosis in vertebral arteries. Patent left brachiocephalic venous stent with moderate short segment in-stent stenosis. ASSESSMENT 1. This is a 61-year-old man with history of hypertension, end-stage renal disease, uncontrolled diabetes mellitus, and coronary artery disease, status post aortocoronary bypass and prior remote stent, who presents with symptoms concerning for transient ischemic attack. Differential diagnosis includes symptomatic left internal carotid artery stenosis. 2. Atrial fibrillation with subtherapeutic international normalized ratio. 3. Atherosclerotic vascular disease. 4. Other sources of thromboembolic disease. RECOMMENDATIONS 1. Aspirin. 2. High-potency statin therapy. 3. Initiate heparin for subtherapeutic INR and hold warfarin. 4. I recommend angiography and consideration of left carotid endarterectomy versus carotid stenting, depending on rest of perioperative risk stratification and anatomical variance. 5. Patient's family and patient are requesting initiation of transfer to higher level of care to [facility] under care of Dr. Street. Dr. Street's team has accepted transfer. Will initiate. Job#: [id number] [place]
[2017-10-30] MEDS ORDERED: ASPIRIN 81 MG CHEW TAB PO ONE (20:00)
[2017-10-30] MEDS ORDERED: ATORVASTATIN 40 MG TAB PO SCH (21:00)
== END 2017-10-30 23:48 | disposition short-term general hospital (02) ==
LOC: FSED 16:01 → EDBEDREQ 18:04 → EDBEDREQSVC 18:04 → FSED 21:06 → IMCU 21:16 → MED/SURG3 10-30 14:16
PROVIDERS: ADMIT Internal Medicine; ATTEND Internal Medicine
DX: G45.9 Transient cerebral ischemic attack, unspecified (principal); S06.0X0A Concussion without loss of consciousness, initial encounter; W10.8XXA Fall (on) (from) other stairs and steps, initial encounter; Y93.01 Activity, walking, marching and hiking; Y92.481 Parking lot as the place of occurrence of the external cause; I48.2 Chronic atrial fibrillation; Z79.01 Long term (current) use of anticoagulants; E87.6 Hypokalemia; E11.22 Type 2 diabetes mellitus with diabetic chronic kidney disease; E11.65 Type 2 diabetes mellitus with hyperglycemia; I12.0 Hypertensive chronic kidney disease with stage 5 chronic kidney disease or end stage renal disease; N18.6 End stage renal disease; Z99.2 Dependence on renal dialysis; I25.10 Atherosclerotic heart disease of native coronary artery without angina pectoris; Z95.1 Presence of aortocoronary bypass graft; Z95.5 Presence of coronary angioplasty implant and graft; E83.42 Hypomagnesemia; E83.39 Other disorders of phosphorus metabolism; I65.22 Occlusion and stenosis of left carotid artery
CPT/HCPCS: 36415 ×3; 70498; 70551; 80048 ×3; 80061; 82948 ×3; 83036; 83735 ×3; 84100 ×3; 84439; 84443; 85025 ×2; 85610; 87040; 87086; 87340; 87350; 93005; 93306; 93880; 97139; 99283; G0378 ×3; J7030; J7050; Q9967; 90962; J1644

== ENCOUNTER → 2018-03-30 | Outpatient (CLI) | payer MEDICARE, OTHER ==
[~2018-03-30] MED LIST: AMIODARONE HCL200 MG PO; ATORVASTATIN CA20 MG PO; CALCIUM ACETAT667 M1 PO; CLONIDINE HCL0.1 MG PO; COUMADIN2 MG PO; COUMADIN3 MG PO; COZAAR25 MG PO; DYMISTA NASAL S23 GM; FUROSEMIDE40 MG PO; LEVOTHYROXINE50 MCG PO; LOSARTAN-HCTZ1 EAC2; METOPROLOL SUCC25 MG PO; TESSALON PERLE100 MG PO
--- NOTE | 2018-03-30 19:02 | Diagnostic Imaging Report ---
PROCEDURE: CT CHEST WITHOUT CONTRAST CT scan of the chest WITHOUT intravenous contrast, using standard protocol. TECHNIQUE: The chest was scanned utilizing a multidetector helical scanner from the apex to the level of the adrenal glands. No IV contrast was administered per physician's request. Coronal and sagittal multiplanar reformations were obtained. COMPARISON: None available. The abnormal chest x-ray in question is not available for review INDICATIONS: ABNORMAL CHEST X-RAY FINDINGS: Lines/tubes: None. Lungs and pleura: Small to moderate right-sided pleural effusion. Linear opacities are noted in the lateral right middle lobe and posterior right lower lobe, likely representing subsegmental atelectasis. There is a 5.2 x 2.5 x 1.9 cm soft tissue density with swirling air bronchograms and surrounding swirling of vessels and airways in the right lower lobe (series 3, image 79). Trace left pleural effusion with multiple linear opacities consistent with atelectatic changes. Multiple linear opacities also noted in the left upper lobe/lingula (better seen on sagittal image 94), consistent with subsegmental atelectasis or scarring. Linear scarring in the left apex (series 3, image 14, and sagittal image 74). No pulmonary nodules or masses. Airways are clear, without endobronchial lesions. Heart and mediastinum: Thyroid is unremarkable. Borderline to mild cardiomegaly. Aorta is non-aneurysmal. Main pulmonary artery is normal in caliber. Atherosclerotic calcification of the thoracic aorta, coronary arteries (particularly the LAD), mitral annulus and aortic valves. A metallic stent is noted in the distal left innominate vein. Lymph nodes: No mediastinal or axillary adenopathy. Difficult to assess for hilar adenopathy given the lack of intravenous contrast. A mildly prominent right lower paratracheal lymph node measuring 1.2 cm in short axis has a normal fatty hilum (series 2 image 41).. Abdomen: The visualized portions of the liver and spleen are unremarkable. Left adrenal gland is unremarkable. Bones: No aggressive lytic lesions. Degenerative disc changes in the thoracic spine. Midline sternotomy wires. Mild bilateral gynecomastia. IMPRESSION: 1. small to moderate right and trace left pleural effusions with associated atelectatic changes. 2. Findings in the right lower lobe most likely represent round atelectasis. Recommend followup CT chest in 2-3 months to document resolution. 3. Subsegmental atelectasis or scarring in the left upper lobe/lingula. 4. Borderline to mild cardiomegaly. Ruben Damon M.D. Dictated by: Ruben Damon M.D. on 03/30/2018 at 19:07 Electronically approved by: Ruben Damon M.D. on 03/30/2018 at 19:07
== END ==
LOC: CT 12:56
PROVIDERS: ATTEND Internal Medicine Critical Care Medicine
DX: R93.8 Abnormal findings on diagnostic imaging of other specified body structures (principal)
CPT/HCPCS: 71250